=== PATIENT | female | born 1940 | race Caucasian/White ===

== ENCOUNTER 2017-12-22 01:17 | Inpatient (IN) | payer MEDICARE ==
[~2017-12-22] VITALS: Ht 165.1 cm; Wt 66.7 kg
[~2017-12-22 01:17] MED LIST: ATOR10 PO; CHOL100044 PO; CLOP75TA14 PO; DILT240C3 PO; FLUT1BLS IH; GUAI5SYR4 PO; IPRA4AER IH; LEVO500T2 PO; NAPR-1023 PO; PRED20TA3 PO; PREM625 PO; RANI-248 PO; TIOT18CA3 IH
[2017-12-22] MEDS ORDERED: IPRATROPIUM/ALBUTEROL SULFATE 3 ML SOLUTION IH ONE ×3 (01:53→11:00)
[2017-12-22 02:10] LABS: BASOPHILS % (AUTO) 0.5 % (0.0-5.0); EOSINOPHILS % (AUTO) 0.2 % (0.0-8.0); HEMATOCRIT 34.8 % (36-48); LYMPHOCYTES % (AUTO) 12.4 % (21.0-51.0); MEAN CORPUSCULAR HEMOGLOBIN 30.3 pg (27.0-33.0); MEAN CORPUSCULAR HGB CONC 34.2 g/dL (32.0-36.0); MEAN CORPUSCULAR VOLUME 88.5 fL (79-99); MONOCYTES % (AUTO) 8.2 % (3.0-13.0); NEUTROPHILS % (AUTO) 78.7 % (40.0-77.0); PLATELET COUNT (AUTO) 221 K/uL (130-400); RED BLOOD CELL COUNT(AUTO) 3.93 MIL/uL (4.00-5.50); WHITE BLOOD COUNT (AUTO) 10.7 K/uL (4.8-10.8)
[2017-12-22 02:25] LABS: CREATININE 1.1 mg/dL (0.5-1.5); POTASSIUM 3.8 mmol/L (3.5-5.1)
[2017-12-22 02:27] LABS: ALBUMIN 3.2 g/dL (3.5-5.0); BILIRUBIN,TOTAL 0.4 mg/dL (0.2-1.0); TOTAL PROTEIN, SERUM 6.4 g/dL (6.0-8.3)
[2017-12-22] MEDS ORDERED: METHYLPREDNISOLONE SOD SUCC 40MG/ML 1ML ONE ×2 (03:03→14:47)
[2017-12-22] MEDS ORDERED: BENZONATATE 100 MG CAPSULE PO ONE ×2 (03:03→13:24)
[2017-12-22] MEDS ORDERED: SODIUM CHLORIDE 0.9% 1000ML 1,000 ML IV ONE (03:03)
[2017-12-22] MEDS ORDERED: GUAIFENESIN-CODEINE 5 ML SYRUP ONE ×3 (04:23→13:25)
[2017-12-22] MEDS: BUDESONIDE 0.5 MG/2 ML INH IH SCH ×2 (06:00→20:12)
[2017-12-22] MEDS ORDERED: ACETAMINOPHEN 325 MG TAB PO PRN (06:00)
[2017-12-22] MEDS: IPRATROPIUM/ALBUTEROL SULFATE 3 ML SOLUTION IH SCH ×3 (06:00→19:49)
[2017-12-22] MEDS ORDERED: LEVOFLOXACIN 500 MG/D5W 100 ML 100 ML ONE (06:14)
[2017-12-22] MEDS: LEVOFLOXACIN 500 MG/D5W 100 ML 100 ML IV SCH (06:19)
[2017-12-22] MEDS ORDERED: FAMOTIDINE/PF 20 MG/2 ML VIAL IV SCH (09:00)
[2017-12-22 12:23] LABS: CREATINE KINASE MB 2.2 ng/mL (0.5-3.6); TROPONIN I 0.36 ng/mL (0.00-0.06)
[2017-12-22] MEDS: BENZONATATE 100 MG CAPSULE PO SCH ×2 (13:28→20:15)
[2017-12-22] MEDS ORDERED: ENOXAPARIN SODIUM 60 MG/0.6 ML SQ ONE (14:46)
[2017-12-22] MEDS ORDERED: FAMOTIDINE 20MG TAB 20 MG TAB ONE (14:47)
[2017-12-22 15:43] VITALS: BP 137/70
[2017-12-22] MEDS: ENOXAPARIN SODIUM 60 MG/0.6 ML SQ SCH (17:00)
[2017-12-22] MEDS ORDERED: FLUT1DIS3 IH (19:07)
[2017-12-22 19:45] VITALS: BP 125/68
[2017-12-22] MEDS: METHYLPREDNISOLONE SOD SUCC 40MG/ML 1ML IVP SCH (20:15)
[2017-12-22 23:35] VITALS: BP 154/86
[2017-12-22] MEDS ORDERED: ALPRAZOLAM 0.25 MG TABLET PO PRN (23:45)
[2017-12-22] MEDS ORDERED: FAMOTIDINE 20MG TAB 20 MG TAB PO PRN (23:45)
[2017-12-23] VITALS (7 sets, daily range): BP systolic 112–126; BP diastolic 55–72
[2017-12-23] MEDS: IPRATROPIUM/ALBUTEROL SULFATE 3 ML SOLUTION IH SCH ×2 (00:33→07:11)
[2017-12-23] MEDS: METHYLPREDNISOLONE SOD SUCC 40MG/ML 1ML IVP SCH ×2 (05:22→19:49)
[2017-12-23] MEDS: LEVOFLOXACIN 500 MG/D5W 100 ML 100 ML IV SCH (05:23)
[2017-12-23 05:47] LABS: HEMATOCRIT 31.9 % (36-48); MEAN CORPUSCULAR HEMOGLOBIN 30.5 pg (27.0-33.0); MEAN CORPUSCULAR VOLUME 89.5 fL (79-99); PLATELET COUNT (AUTO) 232 K/uL (130-400); RED BLOOD CELL COUNT(AUTO) 3.57 MIL/uL (4.00-5.50); RED CELL DISTRIBUTION WIDTH 14.9 % (11.0-15.5); WHITE BLOOD COUNT (AUTO) 14.9 K/uL (4.8-10.8)
[2017-12-23] MEDS: BUDESONIDE 0.5 MG/2 ML INH IH SCH ×2 (06:00→22:58)
[2017-12-23 06:05] LABS: ALBUMIN 2.9 g/dL (3.5-5.0); BILIRUBIN,TOTAL 0.1 mg/dL (0.2-1.0); POTASSIUM 3.8 mmol/L (3.5-5.1); TOTAL PROTEIN, SERUM 6.2 g/dL (6.0-8.3)
[2017-12-23 06:24] LABS: B-TYPE NATRIURETIC PEPTIDE 298 pg/mL (0-100)
[2017-12-23] MEDS ORDERED: IPRATROPIUM/ALBUTEROL SULFATE 3 ML SOLUTION IH PRN (06:30)
[2017-12-23] MEDS ORDERED: DILTIAZEM HCL 120 MG CAP.SR.24H PO SCH (09:00)
[2017-12-23] MEDS ORDERED: **HM** VIT D3 1000 UNITS PO SCH (09:00)
[2017-12-23] MEDS ORDERED: FAMOTIDINE 20MG TAB 20 MG TAB PO SCH (09:00)
[2017-12-23] MEDS ORDERED: CLOPIDOGREL BISULFATE 75 MG TAB PO SCH (09:00)
[2017-12-23 09:23] LABS: ABG BASE EXCESS 0.1 mmol/L (-2.0-3.0); ABG OXYGEN SATURATION 91.9 % (95.0-99.0); ABG PCO2 42 mmHg (32-45)
[2017-12-23] MEDS: BENZONATATE 100 MG CAPSULE PO SCH ×3 (10:06→19:58)
[2017-12-23] MEDS ORDERED: IPRATROPIUM 0.5 MG/2.5 ML INH IH SCH (12:00)
[2017-12-23] MEDS ORDERED: ALBUTEROL SULFATE 0.083% 2.5 MG/3 ML INH IH SCH (12:00)
[2017-12-23] MEDS: GUAIFENESIN-CODEINE 5 ML SYRUP PO PRN ×2 (12:33→21:13)
[2017-12-23] MEDS: IPRATROPIUM 0.5 MG/2.5 ML INH IH SCH ×2 (14:14→22:58)
[2017-12-23] MEDS: ENOXAPARIN SODIUM 60 MG/0.6 ML SQ SCH (17:00)
[2017-12-23] MEDS ORDERED: BUDESONIDE 0.5 MG/2 ML INH IH SCH (18:00)
[2017-12-23] MEDS ORDERED: ATORVASTATIN CALCIUM 10 MG TABLET PO SCH (21:00)
[2017-12-24 03:15] VITALS: BP 115/65
[2017-12-24] MEDS: LEVOFLOXACIN 500 MG/D5W 100 ML 100 ML IV SCH (04:17)
[2017-12-24] MEDS: GUAIFENESIN-CODEINE 5 ML SYRUP PO PRN (04:23)
[2017-12-24] MEDS: METHYLPREDNISOLONE SOD SUCC 40MG/ML 1ML IVP SCH (05:14)
[2017-12-24] MEDS: BUDESONIDE 0.5 MG/2 ML INH IH SCH (06:37)
[2017-12-24] MEDS: IPRATROPIUM 0.5 MG/2.5 ML INH IH SCH (06:37)
[2017-12-24 08:00] VITALS: BP 103/57
[2018-02-21] MEDS ORDERED: CALC-866 PO (10:52)
[2018-02-21] MEDS ORDERED: NAPR220C15 PO (10:52)
[2018-02-21] MEDS ORDERED: BUDE10.2 IH (10:52)
[2018-02-21] MEDS ORDERED: ALBU8.5H8 IH (10:52)
[2018-02-21] MEDS ORDERED: ALPR1TAB2 PO (10:52)
== END 2017-12-24 09:30 | disposition home or self-care (01) | DRG 189 ==
LOC: EDH 01:17 → EDHIP 05:20 → 3AH 15:25
PROVIDERS: ADMIT Internal Medicine Nephrology; ATTEND Internal Medicine Nephrology
DX: J96.21 Acute and chronic respiratory failure with hypoxia (principal); J44.0 Chronic obstructive pulmonary disease with (acute) lower respiratory infection; Z99.81 Dependence on supplemental oxygen; J44.1 Chronic obstructive pulmonary disease with (acute) exacerbation; E03.9 Hypothyroidism, unspecified; I10 Essential (primary) hypertension; J20.9 Acute bronchitis, unspecified; E78.5 Hyperlipidemia, unspecified; D72.829 Elevated white blood cell count, unspecified; I73.9 Peripheral vascular disease, unspecified; Z90.710 Acquired absence of both cervix and uterus; Z87.891 Personal history of nicotine dependence; Z88.0 Allergy status to penicillin; Z88.8 Allergy status to other drugs, medicaments and biological substances; Z83.3 Family history of diabetes mellitus
CPT/HCPCS: 36415; 36600; 71045; 80053; 82550; 82553; 82803; 83874; 83880; 84484; 85025; 85027; 87804; 93005; 93306; 94640; 94664; J1650; J1956; J2920; J7030

== ENCOUNTER → 2018-01-16 | Outpatient (CLI) | payer OTHER ==
[~2018-01-16] MED LIST changes: +ALBU8.5H8 IH; +ALPR1TAB2 PO; +BUDE10.2 IH; +CALC-866 PO; -FLUT1BLS IH; +FLUT1DIS3 IH; -GUAI5SYR4 PO; -LEVO500T2 PO; +NAPR220C15 PO; -PRED20TA3 PO; -PREM625 PO
== END | disposition home or self-care (01) ==
LOC: RAH 13:02
PROVIDERS: ATTEND Internal Medicine Cardiovascular Disease
DX: Z13.6 Encounter for screening for cardiovascular disorders (principal)
CPT/HCPCS: 75571

== ENCOUNTER 2018-02-25 05:58 | Inpatient (IN) | payer MEDICARE ==
[2018-02-21 09:45] VITALS: BP 155/74
[2018-02-21 10:26] LABS: APPEARANCE,URINE Clear (CLEAR); BILIRUBIN,URINE Negative (NEGATIVE); COLOR,URINE Yellow (YELLOW); GLUCOSE, URINE (UA) Negative (NEGATIVE); KETONES,URINE Negative (NEGATIVE); LEUKOCYTE ESTERASE ,URINE Trace (NEGATIVE); NITRATE,URINE Negative (NEGATIVE); OCCULT BLOOD,URINE Negative (NEGATIVE); PH,URINE 5.5 (5.0-8.0); PROTEIN,URINE Negative (NEGATIVE); UROBILINOGEN,URINE 0.2 mg/dL (0.2-1.0)
[2018-02-21 10:32] LABS: CREATININE 1.2 mg/dL (0.5-1.5); POTASSIUM 3.9 mmol/L (3.5-5.1)
[2018-02-21 10:33] LABS: BASOPHILS % (AUTO) 0.6 % (0.0-5.0); EOSINOPHILS % (AUTO) 3.4 % (0.0-8.0); LYMPHOCYTES % (AUTO) 29.4 % (21.0-51.0); MEAN CORPUSCULAR HEMOGLOBIN 30.4 pg (27.0-33.0); MEAN CORPUSCULAR VOLUME 89.2 fL (79-99); MONOCYTES % (AUTO) 7.6 % (3.0-13.0); PLATELET COUNT (AUTO) 298 K/uL (130-400); RED BLOOD CELL COUNT(AUTO) 4.15 MIL/uL (4.00-5.50); RED CELL DISTRIBUTION WIDTH 17.2 % (11.0-15.5); WHITE BLOOD COUNT (AUTO) 7.9 K/uL (4.8-10.8)
[2018-02-21 10:42] LABS: INR 0.87 (0.85-1.15); PARTIAL THROMBOPLASTIN TIME 26.4 SEC (26.3-35.5); PROTHROMBIN TIME 9.2 SEC (9.6-11.6)
[2018-02-21 10:45] LABS: BACTERIA,URINE Few /HPF (None Seen); RBC,URINE 0-1 /HPF (0-1)
[~2018-02-25] VITALS: Ht 165.1 cm; Wt 71.9 kg
[2018-02-25] VITALS (29 sets, daily range): BP systolic 93–154; BP diastolic 36–75
[~2018-02-25 05:58] MED LIST changes: +ACETAMINOPHEN 325 MG TAB PO PRN; -CHOL100044 PO; -FLUT1DIS3 IH; -IPRA4AER IH; -NAPR-1023 PO; +SODIUM CHLORIDE 0.9% 500ML 500 ML IV SCH
[2018-02-25] MEDS ORDERED: SODIUM BICARB 50MEQ 50ML VIAL ONE ×3 (07:08→20:26)
[2018-02-25] MEDS ORDERED: NITROGLYCERIN 5 MG/ML 10 ML VIAL IV ONE (07:08)
[2018-02-25] MEDS ORDERED: HEPARIN SODIUM 1000UNIT/ML 10ML VIAL ONE ×3 (07:08→10:17)
[2018-02-25] MEDS ORDERED: LIDOCAINE HCL 2% 20ML ONE (07:09)
[2018-02-25] MEDS ORDERED: IOPAMIDOL-370 100 ML VIAL IV ONE (07:09)
[2018-02-25] MEDS ORDERED: ISOVUE-370 50ML VIAL IV ONE (07:09)
[2018-02-25] MEDS ORDERED: SODIUM CHLORIDE 0.9% 1000ML 1,000 ML IV ONE (07:19)
[2018-02-25] MEDS ORDERED: SODIUM CHLORIDE 0.9% 1000ML 1,000 ML IV SCH ×2 (08:18→12:30)
[2018-02-25] MEDS ORDERED: ACETAMINOPHEN-CODEINE 300/30MG TAB PO PRN (08:30)
[2018-02-25] MEDS: CLINDAMYCIN 600 MG/D5% WATER 50 ML IV SCH ×3 (09:15→19:53)
[2018-02-25] MEDS ORDERED: NITROGLYCERIN 50 MG/D5% WATER 1 BOT ONE (09:34)
[2018-02-25 09:36] LABS: HEMOGLOBIN A1C 5.6 % (4.0-6.0)
[2018-02-25] MEDS ORDERED: AMIODARONE HCL 50 MG/ML 3 ML VIAL ONE (09:44)
[2018-02-25] MEDS ORDERED: FENTANYL CITRATE PF 50 MCG/1 ML 2ML VIAL ONE (09:47)
[2018-02-25] MEDS ORDERED: MIDAZOLAM HCL 1 MG/ML 2ML VIAL ONE (09:47)
[2018-02-25 09:48] LABS: CHOLESTEROL 242 mg/dL (<200); HDL CHOLESTEROL 158 mg/dL (35-85); LDL DIRECT 84 mg/dL (0-99); TRIGLYCERIDES 88 mg/dL (30-200)
[2018-02-25] MEDS ORDERED: PROPOFOL 10 MG/ML 20ML VIAL IV ONE (10:03)
[2018-02-25] MEDS ORDERED: GLYCOPYRROLATE 0.2 MG/ML 5 ML VIAL ONE (10:06)
[2018-02-25] MEDS ORDERED: ESMOLOL HCL 10 MG/ML 10 ML VIAL ONE (10:06)
[2018-02-25] MEDS ORDERED: LIDOCAINE PF 2% 5ML ABBOJECT ONE (10:06)
[2018-02-25] MEDS ORDERED: PROTAMINE SULFATE 10 MG/ML 25ML VIAL IV ONE (10:06)
[2018-02-25] MEDS ORDERED: ROCURONIUM BROMIDE 10MG/1ML 5ML VL ONE (10:06)
[2018-02-25] MEDS ORDERED: NOREPINEPHRINE BITARTRATE 1 MG/1 ML ML IV ONE (10:07)
[2018-02-25] MEDS ORDERED: MILRINONE-D5W 20 MG/100 ML 0 ML IV ONE (10:07)
[2018-02-25] MEDS ORDERED: EPINEPHRINE 1 MG/ML AMPULE ONE (10:07)
[2018-02-25] MEDS ORDERED: AMINOCAPROIC ACID 250 MG/ML 20 ML VIAL IV ONE (10:07)
[2018-02-25] MEDS ORDERED: THROMBIN-JMI 5000 UNIT/VIAL TP ONE (10:17)
[2018-02-25] MEDS ORDERED: PAPAVERINE HCL 30 MG/ML 2ML VIAL ONE (10:30)
[2018-02-25] MEDS ORDERED: OCTYL 2-CYANOACRYLATE 1 EACH TP ONE (10:30)
[2018-02-25] MEDS ORDERED: BACITRACIN 50,000 UNIT VIAL ONE (10:30)
[2018-02-25 10:34] LABS: ABG BASE EXCESS -1.7 mmol/L (-2.0-3.0); ABG HCO3 23.5 mmol/L (21.0-28.0); ABG OXYGEN SATURATION 99.3 % (95.0-99.0); ABG PCO2 41 mmHg (32-45)
[2018-02-25] MEDS ORDERED: FENTANYL CITRATE PF 50 MCG/1 ML 5ML AMP IV ONE ×2 (11:15→11:16)
[2018-02-25 11:33] LABS: ABG BASE EXCESS -4.8 mmol/L (-2.0-3.0); ABG HCO3 22.1 mmol/L (21.0-28.0); ABG OXYGEN SATURATION 99.4 % (95.0-99.0); ABG PCO2 49 mmHg (32-45)
[2018-02-25] MEDS: AMBU PUMP 1 EACH EACH MISC SCH ×2 (11:45→12:53)
[2018-02-25] MEDS ORDERED: ROPIVACAINE 0.2% 2MG/ML 100ML VIAL IJ ONE (12:00)
[2018-02-25] MEDS ORDERED: SODIUM CHLORIDE 0.9% 500ML 500 ML IV SCH (12:19)
[2018-02-25] MEDS ORDERED: MORPHINE SULFATE 4 MG/1ML SYG IV PRN (12:30)
[2018-02-25] MEDS ORDERED: ACETAMINOPHEN 325 MG TAB PO PRN (12:30)
[2018-02-25] MEDS ORDERED: HYDROCODONE/ACETAMINOPHEN 5/325 MG TAB PO PRN (12:30)
[2018-02-25] MEDS ORDERED: POTASSIUM PHOS 15 mMOL+NS250ML 250 ML IV PRN (12:30)
[2018-02-25] MEDS ORDERED: NITROGLYCERIN 50 MG/D5% WATER 250 BOT IV SCH (12:30)
[2018-02-25] MEDS ORDERED: EPINEPHRINE 2 MG in SODIUM CHLORIDE 0.9% 250 ML IV PRN (12:30)
[2018-02-25] MEDS ORDERED: NICARDIPINE HCL 100 MG in SODIUM CHLORIDE 0.9% 100 ML IV PRN (12:30)
[2018-02-25] MEDS ORDERED: DEXTROSE 50%-WATER 50 ML DISP.SYRIN IV PRN (12:30)
[2018-02-25] MEDS ORDERED: ONDANSETRON HCL 4 MG/2 ML VIAL IV PRN (12:30)
[2018-02-25] MEDS ORDERED: CALCIUM GLUCONATE 1 GM in SODIUM CHLORIDE 0.9% 50 ML IV PRN (12:30)
[2018-02-25] MEDS ORDERED: SODIUM BICARB 8.4% 50ML SYRINGE IV PRN (12:30)
[2018-02-25] MEDS ORDERED: ALBUMIN (HUMAN) 5% 250 ML IV PRN (12:30)
[2018-02-25] MEDS ORDERED: SODIUM CHLORIDE 0.9% 10 ML VIAL IVP PRN (12:30)
[2018-02-25] MEDS ORDERED: MAGNESIUM 2GM PREMIX 50ML 50 ML IV PRN (12:30)
[2018-02-25] MEDS ORDERED: GLUCAGON 1MG KIT 1 MG ML IM PRN (12:30)
[2018-02-25] MEDS ORDERED: INSULIN REGULAR, HUMAN 3ML 100 UNIT in SODIUM CHLORIDE 0.9% 99 ML IV SCH ×2 (12:30)
[2018-02-25] MEDS ORDERED: PROPOFOL 1000 MG/100 ML 100 ML IV PRN (12:30)
[2018-02-25] MEDS ORDERED: SODIUM CHLORIDE 0.9% 250 ML IV PRN (12:30)
[2018-02-25] MEDS: AMINOCAPROIC ACID 15,000 MG in SODIUM CHLORIDE 0.9% 250 ML IV SCH ×2 (12:30→19:55)
[2018-02-25] MEDS ORDERED: ACETAMINOPHEN 650 MG SUPPOSITORY RC PRN (12:30)
[2018-02-25] MEDS ORDERED: MORPHINE SULFATE 2 MG/ML 1ML SYG IV PRN (12:30)
[2018-02-25 12:42] LABS: ABG BASE EXCESS -1.7 mmol/L (-2.0-3.0); ABG HCO3 26.4 mmol/L (21.0-28.0); ABG PCO2 65 mmHg (32-45)
[2018-02-25] MEDS ORDERED: EPHEDRINE SULFATE 50 MG/ML AMPULE ONE (13:01)
[2018-02-25 13:39] LABS: ABG BASE EXCESS -5.5 mmol/L (-2.0-3.0); ABG HCO3 20.8 mmol/L (21.0-28.0); ABG OXYGEN SATURATION 97.5 % (95.0-99.0); ABG PCO2 44 mmHg (32-45)
[2018-02-25] MEDS: POTASSIUM CHLORIDE 20MEQ/100ML 100 ML IV PRN ×2 (13:41→17:31)
[2018-02-25 13:56] LABS: MEAN CORPUSCULAR HEMOGLOBIN 30.9 pg (27.0-33.0); RED BLOOD CELL COUNT(AUTO) 3.14 MIL/uL (4.00-5.50)
[2018-02-25 14:07] LABS: CREATININE 1.1 mg/dL (0.5-1.5); MAGNESIUM 1.4 mg/dL (1.80-2.40); PHOSPHORUS 5.1 mg/dL (2.5-4.9); POTASSIUM 3.8 mmol/L (3.5-5.1)
[2018-02-25 15:13] LABS: HEMATOCRIT 28.1 % (36-48); MEAN CORPUSCULAR HGB CONC 34.5 g/dL (32.0-36.0); MEAN CORPUSCULAR VOLUME 89.6 fL (79-99); NUCLEATED RED BLOOD CELLS 0.1 % (0.0-0.19); PLATELET COUNT (AUTO) 292 K/uL (130-400); RED CELL DISTRIBUTION WIDTH 17.2 % (11.0-15.5); WHITE BLOOD COUNT (AUTO) 28.8 K/uL (4.8-10.8)
[2018-02-25] MEDS: NOREPINEPHRINE 4MG/NS 250ML 250 ML IV PRN (15:30)
[2018-02-25 17:06] LABS: ABG HCO3 24.7 mmol/L (21.0-28.0); ABG OXYGEN SATURATION 94.4 % (95.0-99.0); ABG PCO2 45 mmHg (32-45)
[2018-02-25 17:20] LABS: CREATININE 1.3 mg/dL (0.5-1.5); MAGNESIUM 2.6 mg/dL (1.80-2.40); POTASSIUM 3.7 mmol/L (3.5-5.1)
[2018-02-25 19:15] LABS: ABG BASE EXCESS -0.8 mmol/L (-2.0-3.0); ABG HCO3 24.6 mmol/L (21.0-28.0); ABG OXYGEN SATURATION 93.7 % (95.0-99.0); ABG PCO2 44 mmHg (32-45)
[2018-02-25] MEDS: HYDROCODONE/ACETAMINOPHEN 5/325 MG TAB PO PRN (19:52)
[2018-02-25 20:25] LABS: ABG HCO3 22.4 mmol/L (21.0-28.0); ABG OXYGEN SATURATION 91.5 % (95.0-99.0); ABG PCO2 47 mmHg (32-45)
[2018-02-25 23:27] LABS: ABG BASE EXCESS 0.4 mmol/L (-2.0-3.0); ABG HCO3 26.1 mmol/L (21.0-28.0); ABG PCO2 47 mmHg (32-45)
[2018-02-26] VITALS (23 sets, daily range): BP systolic 88–130; BP diastolic 39–69
[2018-02-26 04:04] LABS: HEMATOCRIT 25.6 % (36-48); MEAN CORPUSCULAR HEMOGLOBIN 29.8 pg (27.0-33.0); MEAN CORPUSCULAR HGB CONC 33.3 g/dL (32.0-36.0); MEAN CORPUSCULAR VOLUME 89.3 fL (79-99); PLATELET COUNT (AUTO) 288 K/uL (130-400); RED BLOOD CELL COUNT(AUTO) 2.86 MIL/uL (4.00-5.50); RED CELL DISTRIBUTION WIDTH 17.6 % (11.0-15.5); WHITE BLOOD COUNT (AUTO) 12.5 K/uL (4.8-10.8)
[2018-02-26 04:18] LABS: CREATININE 1.3 mg/dL (0.5-1.5); MAGNESIUM 2.2 mg/dL (1.80-2.40); PHOSPHORUS 3.8 mg/dL (2.5-4.9)
[2018-02-26] MEDS: HYDROCODONE/ACETAMINOPHEN 5/325 MG TAB PO PRN ×4 (06:05→21:25)
[2018-02-26] MEDS: CLINDAMYCIN 600 MG/D5% WATER 50 ML IV SCH ×2 (06:07→12:19)
[2018-02-26] MEDS: NOREPINEPHRINE 4MG/NS 250ML 250 ML IV PRN (07:50)
[2018-02-26] MEDS: PANTOPRAZOLE SODIUM 40 MG TABLET.DR PO SCH (08:31)
[2018-02-26] MEDS ORDERED: PANTOPRAZOLE 40 MG/VIAL IV SCH (09:00)
[2018-02-26] MEDS: IPRATROPIUM/ALBUTEROL SULFATE 3 ML SOLUTION IH SCH ×3 (11:13→23:16)
[2018-02-26] MEDS: ONDANSETRON HCL MDV 20ML 2 MG/ML VIAL IV PRN (11:29)
[2018-02-26] MEDS ORDERED: ALBUTEROL SULFATE 0.083% 2.5 MG/3 ML INH IH SCH (12:00)
[2018-02-26] MEDS ORDERED: IPRATROPIUM 0.5 MG/2.5 ML INH IH SCH (12:00)
[2018-02-26] MEDS: ASPIRIN 81MG TAB.CHEW PO SCH (15:10)
[2018-02-26] MEDS: BUDESONIDE 0.5 MG/2 ML INH IH SCH (18:13)
[2018-02-26] MEDS: ATORVASTATIN CALCIUM 10 MG TABLET PO SCH (21:24)
[2018-02-27] VITALS (16 sets, daily range): BP systolic 87–124; BP diastolic 41–62
[2018-02-27 04:18] LABS: CREATININE 1.2 mg/dL (0.5-1.5)
[2018-02-27] MEDS: POTASSIUM CHLORIDE 20MEQ/100ML 100 ML IV PRN (04:24)
[2018-02-27 04:46] LABS: HEMATOCRIT 22.5 % (36-48); MEAN CORPUSCULAR HEMOGLOBIN 29.4 pg (27.0-33.0); MEAN CORPUSCULAR HGB CONC 32.2 g/dL (32.0-36.0); MEAN CORPUSCULAR VOLUME 91.5 fL (79-99); NUCLEATED RED BLOOD CELLS 0.1 % (0.0-0.19); PLATELET COUNT (AUTO) 164 K/uL (130-400); RED BLOOD CELL COUNT(AUTO) 2.46 MIL/uL (4.00-5.50); RED CELL DISTRIBUTION WIDTH 17.5 % (11.0-15.5); WHITE BLOOD COUNT (AUTO) 12.5 K/uL (4.8-10.8)
[2018-02-27] MEDS: HYDROCODONE/ACETAMINOPHEN 5/325 MG TAB PO PRN (05:27)
[2018-02-27] MEDS: ONDANSETRON HCL MDV 20ML 2 MG/ML VIAL IV PRN (05:36)
[2018-02-27] MEDS ORDERED: FUROSEMIDE 10 MG/ML 2ML VIAL IV SCH (06:12)
[2018-02-27] MEDS ORDERED: HYDROCORTISONE SOD SUCCINATE 100 MG/2 ML VIAL IV SCH (06:15)
[2018-02-27] MEDS: BUDESONIDE 0.5 MG/2 ML INH IH SCH ×2 (06:38→21:21)
[2018-02-27] MEDS: IPRATROPIUM/ALBUTEROL SULFATE 3 ML SOLUTION IH SCH ×3 (06:38→21:21)
[2018-02-27] MEDS ORDERED: RANITIDINE HCL 15 MG/1 ML PO PRN (07:30)
[2018-02-27] MEDS ORDERED: NAPROXEN 250 MG TAB PO PRN (07:30)
[2018-02-27] MEDS ORDERED: ALPRAZOLAM 0.5 MG TABLET PO PRN (07:30)
[2018-02-27] MEDS: CLOPIDOGREL BISULFATE 75 MG TAB PO SCH (08:03)
[2018-02-27] MEDS: PANTOPRAZOLE SODIUM 40 MG TABLET.DR PO SCH (08:03)
[2018-02-27] MEDS: ASPIRIN 81MG TAB.CHEW PO SCH (08:03)
[2018-02-27] MEDS ORDERED: TRAMADOL HCL 50 MG TABLET PO SCH (08:45)
[2018-02-27] MEDS ORDERED: DILTIAZEM HCL 180 MG CAP.SR.24H PO SCH (09:00)
[2018-02-27] MEDS: FUROSEMIDE 20 MG TABLET PO SCH ×2 (09:35→18:34)
[2018-02-27] MEDS: DILTIAZEM HCL 120 MG CAP.SR.24H PO SCH (09:35)
[2018-02-27] MEDS: METOPROLOL TARTRATE 25 MG TAB PO SCH ×2 (09:35→20:24)
[2018-02-27] MEDS: INSULIN HUMULIN R 100 UNIT/ML 3ML SQ SCH ×3 (11:19→21:00)
[2018-02-27] MEDS ORDERED: IPRATROPIUM 0.5 MG/2.5 ML INH IH SCH (12:00)
[2018-02-27] MEDS: ATORVASTATIN CALCIUM 10 MG TABLET PO SCH (20:22)
[2018-02-28] MEDS: IPRATROPIUM/ALBUTEROL SULFATE 3 ML SOLUTION IH SCH ×5 (00:43→23:52)
[2018-02-28 04:02] VITALS: BP 101/51
[2018-02-28 04:33] LABS: BASOPHILS % (AUTO) 0.4 % (0.0-5.0); EOSINOPHILS % (AUTO) 0.4 % (0.0-8.0); HEMATOCRIT 25.4 % (36-48); LYMPHOCYTES % (AUTO) 9.4 % (21.0-51.0); MEAN CORPUSCULAR HEMOGLOBIN 30.5 pg (27.0-33.0); MEAN CORPUSCULAR HGB CONC 33.8 g/dL (32.0-36.0); MEAN CORPUSCULAR VOLUME 90.1 fL (79-99); NEUTROPHILS % (AUTO) 79.8 % (40.0-77.0); NUCLEATED RED BLOOD CELLS 0.1 % (0.0-0.19); PLATELET COUNT (AUTO) 183 K/uL (130-400); RED BLOOD CELL COUNT(AUTO) 2.82 MIL/uL (4.00-5.50); RED CELL DISTRIBUTION WIDTH 16.2 % (11.0-15.5); WHITE BLOOD COUNT (AUTO) 13.7 K/uL (4.8-10.8)
[2018-02-28 04:55] LABS: CREATININE 1.5 mg/dL (0.5-1.5); POTASSIUM 4.6 mmol/L (3.5-5.1)
[2018-02-28] MEDS: INSULIN HUMULIN R 100 UNIT/ML 3ML SQ SCH ×4 (06:02→20:47)
[2018-02-28] MEDS: BUDESONIDE 0.5 MG/2 ML INH IH SCH ×2 (06:25→18:14)
[2018-02-28 08:00] VITALS: BP 111/61
[2018-02-28] MEDS: ASPIRIN 81MG TAB.CHEW PO SCH (09:25)
[2018-02-28] MEDS: METOPROLOL TARTRATE 25 MG TAB PO SCH ×2 (09:25→20:47)
[2018-02-28] MEDS: CLOPIDOGREL BISULFATE 75 MG TAB PO SCH (09:25)
[2018-02-28] MEDS: FUROSEMIDE 20 MG TABLET PO SCH ×2 (09:26→17:04)
[2018-02-28] MEDS: PANTOPRAZOLE SODIUM 40 MG TABLET.DR PO SCH (09:26)
[2018-02-28] MEDS: DILTIAZEM HCL 120 MG CAP.SR.24H PO SCH (09:28)
[2018-02-28] MEDS: TRAMADOL HCL 50 MG TABLET PO PRN ×2 (09:29→22:51)
[2018-02-28 11:26] VITALS: BP 85/49
[2018-02-28 16:00] VITALS: BP 113/60
[2018-02-28 19:41] VITALS: BP 100/58
[2018-02-28] MEDS ORDERED: AMIODARONE HCL 900 MG in DEXTROSE 5%-WATER 500 ML IV SCH (19:45)
[2018-02-28] MEDS ORDERED: AMIODARONE HCL 150 MG in DEXTROSE 5%-WATER 100 ML IV SCH (19:45)
[2018-02-28] MEDS: ATORVASTATIN CALCIUM 10 MG TABLET PO SCH (20:47)
[2018-02-28 23:42] VITALS: BP 100/55
[2018-03-01 03:45] VITALS: BP 125/60
[2018-03-01 05:04] LABS: CREATININE 1.3 mg/dL (0.5-1.5); POTASSIUM 3.9 mmol/L (3.5-5.1)
[2018-03-01] MEDS: IPRATROPIUM/ALBUTEROL SULFATE 3 ML SOLUTION IH SCH ×3 (06:14→18:16)
[2018-03-01] MEDS: BUDESONIDE 0.5 MG/2 ML INH IH SCH ×2 (06:24→19:03)
[2018-03-01] MEDS: INSULIN HUMULIN R 100 UNIT/ML 3ML SQ SCH ×4 (06:45→20:59)
[2018-03-01 07:44] VITALS: BP 117/57
[2018-03-01] MEDS: PANTOPRAZOLE SODIUM 40 MG TABLET.DR PO SCH (09:07)
[2018-03-01] MEDS: METOPROLOL TARTRATE 25 MG TAB PO SCH ×2 (09:07→19:58)
[2018-03-01] MEDS: FUROSEMIDE 20 MG TABLET PO SCH ×2 (09:07→17:55)
[2018-03-01] MEDS: CLOPIDOGREL BISULFATE 75 MG TAB PO SCH (09:07)
[2018-03-01] MEDS: ASPIRIN 81MG TAB.CHEW PO SCH (09:07)
[2018-03-01] MEDS ORDERED: MAGNESIUM HYDROXIDE 30 ML/UDCUP PO PRN (10:30)
[2018-03-01] MEDS: ACETYLCYSTEINE 20% 200MG/ML 4ML VIAL IH SCH ×2 (11:06→18:16)
[2018-03-01 11:43] VITALS: BP 119/59
[2018-03-01] MEDS: POLYETHYLENE GLYCOL 3350 17 GM POWD.PACK PO SCH (12:26)
[2018-03-01 16:54] VITALS: BP 128/62
[2018-03-01] MEDS: LEVOFLOXACIN 500 MG TABLET PO SCH (17:54)
[2018-03-01 19:46] VITALS: BP 137/64
[2018-03-01] MEDS: AMIODARONE HCL 200 MG TABLET PO SCH (19:58)
[2018-03-01] MEDS: ATORVASTATIN CALCIUM 10 MG TABLET PO SCH (19:58)
[2018-03-01 23:52] VITALS: BP 131/72
[2018-03-02] MEDS: IPRATROPIUM/ALBUTEROL SULFATE 3 ML SOLUTION IH SCH ×5 (00:25→23:48)
[2018-03-02] MEDS: TRAMADOL HCL 50 MG TABLET PO PRN ×2 (00:32→17:48)
[2018-03-02 03:45] VITALS: BP 142/70
[2018-03-02 04:15] LABS: HEMATOCRIT 24.8 % (36-48); MEAN CORPUSCULAR HEMOGLOBIN 30.7 pg (27.0-33.0); MEAN CORPUSCULAR HGB CONC 34.4 g/dL (32.0-36.0); MEAN CORPUSCULAR VOLUME 89.4 fL (79-99); NUCLEATED RED BLOOD CELLS 0.2 % (0.0-0.19); PLATELET COUNT (AUTO) 237 K/uL (130-400); RED BLOOD CELL COUNT(AUTO) 2.78 MIL/uL (4.00-5.50); RED CELL DISTRIBUTION WIDTH 16.5 % (11.0-15.5); WHITE BLOOD COUNT (AUTO) 8.2 K/uL (4.8-10.8)
[2018-03-02 04:28] LABS: CREATININE 1.1 mg/dL (0.5-1.5)
[2018-03-02 04:38] LABS: POTASSIUM 2.8 mmol/L (3.5-5.1)
[2018-03-02] MEDS: POTASSIUM CHLORIDE 20MEQ/100ML 100 ML IV PRN (05:18)
[2018-03-02] MEDS: BUDESONIDE 0.5 MG/2 ML INH IH SCH ×2 (06:07→20:32)
[2018-03-02] MEDS: ACETYLCYSTEINE 20% 200MG/ML 4ML VIAL IH SCH ×3 (06:07→19:38)
[2018-03-02] MEDS: INSULIN HUMULIN R 100 UNIT/ML 3ML SQ SCH ×4 (06:15→20:26)
[2018-03-02 07:34] VITALS: BP 126/66
[2018-03-02] MEDS ORDERED: LIDOCAINE HCL-MPF 1% 2ML VIAL IVP PRN (07:45)
[2018-03-02] MEDS ORDERED: POTASSIUM CHLORIDE 20MEQ/100ML 100 ML IV PRN (07:45)
[2018-03-02] MEDS ORDERED: POTASSIUM CHLORIDE 10% ELIXIR 20 MEQ/15 ML UDCUP PO PRN (07:45)
[2018-03-02] MEDS: METOPROLOL TARTRATE 25 MG TAB PO SCH (08:05)
[2018-03-02] MEDS: CLOPIDOGREL BISULFATE 75 MG TAB PO SCH (08:05)
[2018-03-02] MEDS: POLYETHYLENE GLYCOL 3350 17 GM POWD.PACK PO SCH (08:05)
[2018-03-02] MEDS: PANTOPRAZOLE SODIUM 40 MG TABLET.DR PO SCH (08:05)
[2018-03-02] MEDS: ASPIRIN 81MG TAB.CHEW PO SCH (08:05)
[2018-03-02] MEDS: AMIODARONE HCL 200 MG TABLET PO SCH ×2 (08:05→20:19)
[2018-03-02] MEDS: LEVOFLOXACIN 500 MG TABLET PO SCH (08:05)
[2018-03-02] MEDS: FUROSEMIDE 20 MG TABLET PO SCH ×2 (08:06→17:48)
[2018-03-02] MEDS: POTASSIUM CHLORIDE 20 MEQ ERTAB PO PRN ×3 (08:06→23:05)
[2018-03-02 12:09] VITALS: BP 124/70
[2018-03-02] MEDS: ONDANSETRON HCL MDV 20ML 2 MG/ML VIAL IV PRN (12:24)
[2018-03-02 16:26] VITALS: BP 127/64
[2018-03-02 19:00] VITALS: BP 127/60
[2018-03-02] MEDS: ATORVASTATIN CALCIUM 10 MG TABLET PO SCH (20:19)
[2018-03-02] MEDS: METOPROLOL TARTRATE 50 MG TAB PO SCH (20:23)
[2018-03-02] MEDS ORDERED: AMIODARONE HCL 150 MG in DEXTROSE 5%-WATER 100 ML IV SCH (22:00)
[2018-03-02] MEDS ORDERED: AMIODARONE HCL 50 MG/ML 3 ML VIAL ONE (22:02)
[2018-03-02] MEDS ORDERED: DEXTROSE 5%-WATER 500 ML IV ONE (22:03)
[2018-03-02 23:00] VITALS: BP 109/68
[2018-03-03 03:00] VITALS: BP 114/56
[2018-03-03 04:53] LABS: CREATININE 1.1 mg/dL (0.5-1.5); POTASSIUM 3.5 mmol/L (3.5-5.1)
[2018-03-03] MEDS: POTASSIUM CHLORIDE 20 MEQ ERTAB PO PRN ×2 (05:11→06:26)
[2018-03-03] MEDS: TRAMADOL HCL 50 MG TABLET PO PRN ×3 (05:21→16:14)
[2018-03-03] MEDS: IPRATROPIUM/ALBUTEROL SULFATE 3 ML SOLUTION IH SCH ×2 (05:53→11:05)
[2018-03-03] MEDS: BUDESONIDE 0.5 MG/2 ML INH IH SCH (05:53)
[2018-03-03] MEDS: INSULIN HUMULIN R 100 UNIT/ML 3ML SQ SCH ×3 (06:39→15:55)
[2018-03-03 07:00] VITALS: BP 113/57
[2018-03-03] MEDS: AMIODARONE HCL 200 MG TABLET PO SCH (09:03)
[2018-03-03] MEDS: LEVOFLOXACIN 500 MG TABLET PO SCH (09:03)
[2018-03-03] MEDS: METOPROLOL TARTRATE 50 MG TAB PO SCH (09:03)
[2018-03-03] MEDS: FUROSEMIDE 20 MG TABLET PO SCH ×2 (09:03→16:24)
[2018-03-03] MEDS: PANTOPRAZOLE SODIUM 40 MG TABLET.DR PO SCH (09:04)
[2018-03-03] MEDS: POLYETHYLENE GLYCOL 3350 17 GM POWD.PACK PO SCH (09:04)
[2018-03-03] MEDS: CLOPIDOGREL BISULFATE 75 MG TAB PO SCH (09:04)
[2018-03-03] MEDS: ASPIRIN 81MG TAB.CHEW PO SCH (09:04)
[2018-03-03 11:00] VITALS: BP 123/67
[2018-03-03 16:00] VITALS: BP 95/59
[2018-03-03] MEDS ORDERED: APIXABAN 5 MG TABLET PO SCH (21:00)
== END 2018-03-03 17:05 | DRG 233 ==
LOC: SUH 05:58 → DAH 05:58 → DAHIP 05:59 → SUH 05:59 → 2CV 12:43 → 2BH 02-26 03:12 → 2DH 02-27 14:45
PROVIDERS: ADMIT Internal Medicine; ATTEND Internal Medicine
PROC: B4101ZZ Fluoroscopy of Abdominal Aorta using Low Osmolar Contrast (ICD-10-PCS; 2018-02-25)
PROC: B2111ZZ Fluoroscopy of Multiple Coronary Arteries using Low Osmolar Contrast (ICD-10-PCS; 2018-02-25)
PROC: 4A023N7 Measurement of Cardiac Sampling and Pressure, Left Heart, Percutaneous Approach (ICD-10-PCS; 2018-02-25)
PROC: 021209W Bypass Coronary Artery, Three Arteries from Aorta with Autologous Venous Tissue, Open Approach (ICD-10-PCS; 2018-02-25)
PROC: 06BQ4ZZ Excision of Left Saphenous Vein, Percutaneous Endoscopic Approach (ICD-10-PCS; 2018-02-25)
PROC: 30233N1 Transfusion of Nonautologous Red Blood Cells into Peripheral Vein, Percutaneous Approach (ICD-10-PCS; 2018-02-25)
PROC: 0BH17EZ Insertion of Endotracheal Airway into Trachea, Via Natural or Artificial Opening (ICD-10-PCS; 2018-02-25)
PROC: 02100Z9 Bypass Coronary Artery, One Artery from Left Internal Mammary, Open Approach (ICD-10-PCS; principal; 2018-02-25 09:52)
PROC: B2151ZZ Fluoroscopy of Left Heart using Low Osmolar Contrast (ICD-10-PCS; 2018-02-25 09:52)
PROC: 5A1935Z Respiratory Ventilation, Less than 24 Consecutive Hours (ICD-10-PCS; 2018-02-25 09:52)
DX: I25.119 Atherosclerotic heart disease of native coronary artery with unspecified angina pectoris (principal); I50.33 Acute on chronic diastolic (congestive) heart failure; J96.10 Chronic respiratory failure, unspecified whether with hypoxia or hypercapnia; I48.0 Paroxysmal atrial fibrillation; J44.9 Chronic obstructive pulmonary disease, unspecified; Z99.81 Dependence on supplemental oxygen; D64.9 Anemia, unspecified; I34.0 Nonrheumatic mitral (valve) insufficiency; E03.9 Hypothyroidism, unspecified; E78.5 Hyperlipidemia, unspecified; I10 Essential (primary) hypertension; I49.3 Ventricular premature depolarization; I70.209 Unspecified atherosclerosis of native arteries of extremities, unspecified extremity; K21.9 Gastro-esophageal reflux disease without esophagitis; M19.90 Unspecified osteoarthritis, unspecified site; M51.9 Unspecified thoracic, thoracolumbar and lumbosacral intervertebral disc disorder; Z79.899 Other long term (current) drug therapy; Q27.2 Other congenital malformations of renal artery; Z72.0 Tobacco use; Z88.0 Allergy status to penicillin; Z79.01 Long term (current) use of anticoagulants; Z79.02 Long term (current) use of antithrombotics/antiplatelets; Z79.82 Long term (current) use of aspirin; Z83.3 Family history of diabetes mellitus; Z82.49 Family history of ischemic heart disease and other diseases of the circulatory system
CPT/HCPCS: 36415; 36430; 36600; 71045; 71046; 75625; 80048; 80061; 81001; 82330; 82435; 82803; 82947; 82948; 83036; 83605; 83735; 84100; 84132; 84295; 85018; 85025; 85027; 85347; 85610; 85730; 86850; 86900; 86901; 86922; 93005; 93458; 93880; 94002; 94010; 94150; 94640; 94664; 97039; A4606; A7048; C1894; C9113; J0171; J0282; J1644; J1720; J1815; J1940; J2001; J2250; J2260; J2440; J2704; J2720; J2795; J3010; J3475; J3480; J3490; J7030; J7040; J7060; J7608; P9016; P9045; Q9967

== ENCOUNTER 2019-08-10 08:36 | Emergency (ER) | payer MEDICARE ==
[~2019-08-10 08:36] MED LIST changes: -ACETAMINOPHEN 325 MG TAB PO PRN; +ALBU2.5V2 IH; -ALBU8.5H8 IH; -ALPR1TAB2 PO; +ALPR1TAB7 PO; +APIX5TAB PO; -BUDE10.2 IH; -CLOP75TA14 PO; +LEVO88TA7 PO; -NAPR220C15 PO; -RANI-248 PO; +RANI-662 PO; -SODIUM CHLORIDE 0.9% 500ML 500 ML IV SCH; -TIOT18CA3 IH; +TIOTROPIUM PUFF
[2019-08-10] MEDS ORDERED: IPRATROPIUM/ALBUTEROL SULFATE 3 ML SOLUTION IH ONE (08:55)
[2019-08-10] MEDS ORDERED: LEVOFLOXACIN 500 MG/D5W 100 ML 100 ML ONE (08:57)
[2019-08-10] MEDS ORDERED: METHYLPREDNISOLONE SOD SUCC 125MG/2ML VIAL ONE (08:57)
[2019-08-10 09:01] LABS: BASOPHILS % (AUTO) 0.5 % (0.0-5.0); EOSINOPHILS % (AUTO) 3.4 % (0.0-8.0); HEMATOCRIT 35.4 % (36-48); LYMPHOCYTES % (AUTO) 23.9 % (21.0-51.0); MEAN CORPUSCULAR HEMOGLOBIN 31.3 pg (27.0-33.0); MEAN CORPUSCULAR HGB CONC 34.2 g/dL (32.0-36.0); MEAN CORPUSCULAR VOLUME 91.8 fL (79-99); MONOCYTES % (AUTO) 9.5 % (3.0-13.0); NEUTROPHILS % (AUTO) 62.7 % (40.0-77.0); PLATELET COUNT (AUTO) 315 K/uL (130-400); RED BLOOD CELL COUNT(AUTO) 3.86 MIL/uL (4.00-5.50); RED CELL DISTRIBUTION WIDTH 15.7 % (11.0-15.5); WHITE BLOOD COUNT (AUTO) 8.6 K/uL (4.8-10.8)
[2019-08-10 09:16] LABS: POTASSIUM 3.8 mmol/L (3.5-5.1)
[2019-08-10 09:21] LABS: ALBUMIN 3.4 g/dL (3.5-5.0); BILIRUBIN,TOTAL 0.3 mg/dL (0.2-1.0); TOTAL PROTEIN, SERUM 6.8 g/dL (6.0-8.3)
[2019-08-10 09:38] LABS: B-TYPE NATRIURETIC PEPTIDE 29 pg/mL (0-100)
== END 2019-08-10 10:45 | disposition home or self-care (01) ==
LOC: EDH 08:36
DX: J44.1 Chronic obstructive pulmonary disease with (acute) exacerbation (principal); E78.5 Hyperlipidemia, unspecified; I10 Essential (primary) hypertension; I25.10 Atherosclerotic heart disease of native coronary artery without angina pectoris; Z88.0 Allergy status to penicillin
CPT/HCPCS: 36415; 71045; 80053; 82550; 83880; 84484; 85025; 93005; 94640; 96365; 96366; 96375; 99285; J1956; J2930

== ENCOUNTER 2019-10-13 16:14 | Inpatient (IN) | payer MEDICARE ==
[~2019-10-13] VITALS: Ht 165.1 cm; Wt 67.6 kg
[~2019-10-13 16:14] MED LIST changes: -DILT240C3 PO; +DILT240C97 PO
[2019-10-13] MEDS ORDERED: IPRATROPIUM/ALBUTEROL SULFATE 3 ML SOLUTION IH ONE (16:21)
[2019-10-13 16:36] LABS: ABG BASE EXCESS 1.3 mmol/L (-2.0-3.0); ABG HCO3 25.7 mmol/L (21.0-28.0); ABG OXYGEN SATURATION 96.1 % (95.0-99.0); ABG PCO2 40 mmHg (32-45)
[2019-10-13] MEDS ORDERED: ACETAMINOPHEN 325 MG TAB ONE (16:49)
[2019-10-13] MEDS ORDERED: METHYLPREDNISOLONE SOD SUCC 125MG/2ML VIAL ONE (16:49)
[2019-10-13] MEDS ORDERED: LEVOFLOXACIN 500 MG/D5W 100 ML 100 ML ONE (16:49)
[2019-10-13] MEDS ORDERED: SODIUM CHLORIDE 0.9% 1000ML 2,000 ML IV ONE (16:49)
[2019-10-13 17:04] LABS: BASOPHILS % (AUTO) 0.2 % (0.0-5.0); EOSINOPHILS % (AUTO) 0.8 % (0.0-8.0); HEMATOCRIT 38.5 % (36-48); MEAN CORPUSCULAR HEMOGLOBIN 30.2 pg (27.0-33.0); MEAN CORPUSCULAR HGB CONC 33.5 g/dL (32.0-36.0); MEAN CORPUSCULAR VOLUME 90.1 fL (79-99); MONOCYTES % (AUTO) 8.3 % (3.0-13.0); NEUTROPHILS % (AUTO) 80.7 % (40.0-77.0); NUCLEATED RED BLOOD CELLS 0.1 % (0.0-0.19); PLATELET COUNT (AUTO) 246 K/uL (130-400); RED BLOOD CELL COUNT(AUTO) 4.27 MIL/uL (4.00-5.50); RED CELL DISTRIBUTION WIDTH 14.5 % (11.0-15.5); WHITE BLOOD COUNT (AUTO) 16.3 K/uL (4.8-10.8)
[2019-10-13 17:11] LABS: INR 0.89 (0.85-1.15); PARTIAL THROMBOPLASTIN TIME 31.8 SEC (26.3-35.5); PROTHROMBIN TIME 9.4 SEC (9.6-11.6)
[2019-10-13 17:34] LABS: CARBON DIOXIDE 28 mmol/L (21-32); CHLORIDE 101 mmol/L (101-111); GLOMERULAR FILTR. RATE CALC 57 mL/min (>60); GLUCOSE,RANDOM 153 mg/dL (70-105); POTASSIUM 3.8 mmol/L (3.5-5.1); SODIUM SERUM 137 mmol/L (136-145); UREA NITROGEN, BLOOD 10 mg/dL (7-18)
[2019-10-13 17:39] LABS: APPEARANCE,URINE Clear (CLEAR); BILIRUBIN,URINE Negative (NEGATIVE); COLOR,URINE Yellow (YELLOW); GLUCOSE, URINE (UA) Negative (NEGATIVE); KETONES,URINE Negative (NEGATIVE); LEUKOCYTE ESTERASE ,URINE Small (NEGATIVE); NITRATE,URINE Positive (NEGATIVE); OCCULT BLOOD,URINE Trace (NEGATIVE); PROTEIN,URINE Negative (NEGATIVE); UROBILINOGEN,URINE 0.2 mg/dL (0.2-1.0)
[2019-10-13 17:45] LABS: BACTERIA,URINE Few /HPF (None Seen)
[2019-10-13 17:46] LABS: SQUAMOUS EPITHELIAL CELL,UR Few /HPF (0-2)
[2019-10-13 17:49] LABS: ALANINE AMINOTRANSFERASE 13 U/L (12-78); ALBUMIN 3.6 g/dL (3.5-5.0); ASPARTATE AMINOTRANSFERASE 14 U/L (10-37); BILIRUBIN,TOTAL 0.4 mg/dL (0.2-1.0); CREATINE KINASE, TOTAL 50 U/L (21-232); MYOGLOBIN 46 ng/mL (10-92); TOTAL PROTEIN, SERUM 7.5 g/dL (6.0-8.3); TROPONIN I < 0.04 ng/mL (0.00-0.06)
[2019-10-13] MEDS ORDERED: COMPOUND PO MISCELLANEOUS 1 EACH MISC MISC PRN (19:30)
[2019-10-13] MEDS ORDERED: IPRATROPIUM/ALBUTEROL SULFATE 3 ML SOLUTION IH PRN ×2 (19:30→20:45)
[2019-10-13] MEDS: AZITHROMYCIN 500MG+NS 250ML 250 ML IV SCH (20:00)
[2019-10-13] MEDS ORDERED: TRAMADOL HCL 50 MG TABLET ONE (20:05)
[2019-10-13] MEDS: OSELTAMIVIR SUSP 15 MG/ML (6 CAPS/29ML) PO SCH ×2 (21:00)
[2019-10-13] MEDS ORDERED: CEFTRIAXONE SODIUM 1 GM ONE (21:24)
[2019-10-13] MEDS ORDERED: APIXABAN 2.5 MG TABLET PO ONE (22:54)
[2019-10-13] MEDS ORDERED: ALPRAZOLAM 1 MG TAB ONE (22:55)
[2019-10-13] MEDS ORDERED: AZITHROMYCIN 500MG+NS 250ML 250 ML IV ONE (22:55)
[2019-10-13] MEDS: METHYLPREDNISOLONE SOD SUCC 40MG/ML 1ML IVP SCH (23:09)
[2019-10-13 23:26] VITALS: BP 128/86
--- NOTE | 2019-10-13 23:26 | NUR ---
ASSESSMENT: REPORT RECEIVED FROM MARIA CARRASCO FROM ER. PATIENT AA0 X 3, KARLA 2 MM , FOLLOWS COMMANDS, STRONG X 4, LUNGS DIMINISHED, O2 2L NC, PATIENT SOB AT REST, ABDOMEN SOFT BOWEL SOUNDS PRESENT, PEDAL PULSES PALPABLE. PATIENT STATES HER SIGNIFICANT OTHER WILL BRING HOME MEDS IN AM. PATIENT WITH SILVER COLORED RING WITH CLEAR STONE., ADULT BRIEF ON. PLAN OF CARE DISCUSSED, ADMISSION INFORMATION GIVEN INCLUDING BOOKLET "MEDICATION GUIDE , REASONS, SIDE EFFECTS ". BED ALARM ON, PATIENT INSTRUCTED TO CALL FOR ASSISTANCE IF GETTING OUT OF BED. CALL KRAMER IN PATIENT'S HAND.
[2019-10-13 23:27] VITALS: BP 128/86
[2019-10-13 23:32] VITALS: BP 127/71
[2019-10-14] VITALS (17 sets, daily range): BP systolic 111–164; BP diastolic 51–82
[2019-10-14] MEDS: IPRATROPIUM/ALBUTEROL SULFATE 3 ML SOLUTION IH SCH ×5 (00:22→23:17)
[2019-10-14] MEDS: METHYLPREDNISOLONE SOD SUCC 40MG/ML 1ML IVP SCH ×5 (00:43→20:43)
[2019-10-14] MEDS ORDERED: METHYLPREDNISOLONE SOD SUCC 40MG/ML 1ML IVP SCH (05:00)
[2019-10-14 05:25] LABS: MEAN CORPUSCULAR HGB CONC 33.2 g/dL (32.0-36.0); MEAN CORPUSCULAR VOLUME 90.4 fL (79-99); PLATELET COUNT (AUTO) 237 K/uL (130-400); RED BLOOD CELL COUNT(AUTO) 3.65 MIL/uL (4.00-5.50); RED CELL DISTRIBUTION WIDTH 14.6 % (11.0-15.5); WHITE BLOOD COUNT (AUTO) 16.7 K/uL (4.8-10.8)
[2019-10-14 05:51] LABS: ALBUMIN 2.7 g/dL (3.5-5.0); BILIRUBIN,TOTAL 0.3 mg/dL (0.2-1.0); CREATININE 0.9 mg/dL (0.5-1.5); POTASSIUM 4.6 mmol/L (3.5-5.1); TOTAL PROTEIN, SERUM 6.2 g/dL (6.0-8.3)
[2019-10-14] MEDS: BUDESONIDE 0.5 MG/2 ML INH IH SCH ×2 (06:59→17:43)
[2019-10-14] MEDS ORDERED: LEVO75TA10 PO (08:45)
[2019-10-14] MEDS ORDERED: ALPR0.5T8 PO (08:45)
--- NOTE | 2019-10-14 11:15 | NUR ---
Jennifer Coy HEALTH AND SAFETY INSTRUCTOR here to see patient. Made aware of Home Medications that were reviewed and needed to be reconciled. Pending Medications to be reconciled at this time.
[2019-10-14] MEDS: OSELTAMIVIR SUSP 15 MG/ML (6 CAPS/29ML) PO SCH ×4 (11:17→20:42)
--- NOTE | 2019-10-14 11:41 | NUR ---
Report Given to Joss SIFUENTES. Patient being transferred to room 224.
--- NOTE | 2019-10-14 12:00 | NUR ---
TRANSFER FROM 206 RECEIVED PT VIA WHEELCHAIR, A&0X3, CALM COOPERATIVE AND DOES NOT APPEAR TO BE IN ANY DISTRESS NOR ANY NEURO DEFICITS, PT DENIES PAIN, DIZZINESS OR LIGHTHEADEDNESS. PT AMBULATING FROM WHEELCHAIR TO BED, GAIT STEADY AND STRONG WITH STAND BY ASSIST. CALL LIGHT WITHIN REACH, FAMILY AT BEDSIDE.
[2019-10-14] MEDS ORDERED: ALPRAZOLAM 0.5 MG TABLET PO PRN (12:15)
[2019-10-14] MEDS ORDERED: APIXABAN 5 MG TABLET PO ONE (15:54)
[2019-10-14] MEDS: APIXABAN 5 MG TABLET PO SCH (16:07)
[2019-10-14] MEDS: DILTIAZEM HCL 120 MG CAP.SR.24H PO SCH (16:08)
--- NOTE | 2019-10-14 16:08 | NUR ---
DC PLAN VISITED WITH PATIENT. PATIENT LIVES WITH [employer]PER[employer]. PATIENT HAS 02 AT HOME NO OTHER EQUIPMENT. FEELS SAFE TO RETURN HOME. Addendum: 10/14/19 at 1611 by JAQUELINE PARRA RN CM Amended: Links added.
[2019-10-14] MEDS ORDERED: CEFTRIAXONE SODIUM 1 GM IVP SCH ×2 (18:00→21:00)
[2019-10-14] MEDS: AZITHROMYCIN 500MG+NS 250ML 250 ML IV SCH (20:41)
[2019-10-14] MEDS ORDERED: ATORVASTATIN CALCIUM 10 MG TABLET PO SCH (21:00)
[2019-10-15 03:29] VITALS: BP 102/53
[2019-10-15 04:14] LABS: HEMATOCRIT 30.6 % (36-48); MEAN CORPUSCULAR HEMOGLOBIN 30.1 pg (27.0-33.0); MEAN CORPUSCULAR HGB CONC 33.2 g/dL (32.0-36.0); MEAN CORPUSCULAR VOLUME 90.7 fL (79-99); PLATELET COUNT (AUTO) 238 K/uL (130-400); RED BLOOD CELL COUNT(AUTO) 3.37 MIL/uL (4.00-5.50); RED CELL DISTRIBUTION WIDTH 14.3 % (11.0-15.5); WHITE BLOOD COUNT (AUTO) 12.6 K/uL (4.8-10.8)
[2019-10-15 04:25] LABS: LYMPHOCYTES % (MANUAL) 7 % (22-44); MAN.DIFF COMMENT-IMPRESSION MANUAL DIFFERENTIAL; PLATELET MORPHOLOGY COMMENT PLT CLUMPS PRESENT; SEGMENTED NEUTROPHILS % 93 % (40-70)
[2019-10-15] MEDS: IPRATROPIUM/ALBUTEROL SULFATE 3 ML SOLUTION IH SCH ×2 (05:55→11:03)
[2019-10-15] MEDS: BUDESONIDE 0.5 MG/2 ML INH IH SCH (05:55)
[2019-10-15] MEDS ORDERED: LEVOTHYROXINE 75 MCG TABLET PO SCH (06:30)
[2019-10-15] MEDS: METHYLPREDNISOLONE SOD SUCC 40MG/ML 1ML IVP SCH (06:36)
--- NOTE | 2019-10-15 07:20 | NUR ---
ASSESSMENT ENCOUNTERED PT A&OX3, CALM COOPERATIVE AND DOES NOT APPEAR TO BE IN ANY DISTRESS NOR ANY NEURO DEFICITS PRESENT. PT DENIES PAIN, DIZZINESS OR LIGHTHEADEDNESS BUT DOES C/O INTERMITTENT COUGH. PT IS AMBULATORY, GAIT STEADY AND STRONG WITH STAND BY ASSIST. CALL LIGHT WITHIN REACH, FAMILY AT BEDSIDE.
[2019-10-15 07:47] VITALS: BP 132/59
[2019-10-15] MEDS ORDERED: DILTIAZEM HCL 120 MG CAP.SR.24H PO SCH (09:00)
[2019-10-15] MEDS: DILTIAZEM HCL 120 MG CAP.SR.24H PO SCH (09:23)
[2019-10-15] MEDS: APIXABAN 5 MG TABLET PO SCH (09:23)
[2019-10-15] MEDS: OSELTAMIVIR SUSP 15 MG/ML (6 CAPS/29ML) PO SCH ×2 (09:24)
[2019-10-15] MEDS ORDERED: NITR100C4 PO (11:10)
[2019-10-15] MEDS ORDERED: METH4TAB PO (11:12)
[2019-10-15] MEDS ORDERED: METH8TAB PO (11:12)
[2019-10-15] MEDS ORDERED: METH16TA PO (11:12)
[2019-10-15 11:46] VITALS: BP 127/59
--- NOTE | 2019-10-15 15:50 | NUR ---
GIVEN DISMISSAL INSTRUCTIONS AND EDUCATION ON MEDROL PACK. VERBALIZED UNDERSTANDING. REMOVED SALINE LOCK FROM LEFT WRIST, IV SITE WITHOUT REDNESS NOTED. REMOVED TELE PACK. DISMISSAL PAPERWORK GIVEN AND SIGNED BY PATIENT.
--- NOTE | 2019-10-15 15:58 | NUR ---
TAKEN TO PRIVATE CAR ALONG WITH PERSONAL BELONGINGS VIA WHEELCHAIR BY SYDNIE HYDE.
== END 2019-10-15 15:55 | disposition home or self-care (01) | DRG 871 ==
LOC: EDH 16:14 → EDHIP 18:44 → 2BH 22:53 → 2DH 10-14 11:49
PROVIDERS: ADMIT Internal Medicine Nephrology; ATTEND Internal Medicine Nephrology
DX: A41.9 Sepsis, unspecified organism (principal); J18.9 Pneumonia, unspecified organism; J96.21 Acute and chronic respiratory failure with hypoxia; J44.1 Chronic obstructive pulmonary disease with (acute) exacerbation; J44.0 Chronic obstructive pulmonary disease with (acute) lower respiratory infection; N39.0 Urinary tract infection, site not specified; I25.10 Atherosclerotic heart disease of native coronary artery without angina pectoris; E78.5 Hyperlipidemia, unspecified; F17.200 Nicotine dependence, unspecified, uncomplicated; I10 Essential (primary) hypertension; I48.91 Unspecified atrial fibrillation; I73.9 Peripheral vascular disease, unspecified; Z95.1 Presence of aortocoronary bypass graft; Z99.81 Dependence on supplemental oxygen; Z79.01 Long term (current) use of anticoagulants; Z90.710 Acquired absence of both cervix and uterus; Z88.0 Allergy status to penicillin; Z88.8 Allergy status to other drugs, medicaments and biological substances; Z83.3 Family history of diabetes mellitus
CPT/HCPCS: 36415; 36600; 71045; 80048; 80053; 81001; 82550; 82803; 82948; 83605; 83874; 83880; 84145; 84484; 85025; 85027; 85610; 85730; 87040; 87077; 87088; 87186; 87804; 93005; 94640; 94660; 94664; 94667; 99291; G0378; J0456; J0696; J1956; J2920; J2930; J7030

== ENCOUNTER → 2020-01-21 | Outpatient (CLI) | payer MEDICARE ==
[~2020-01-21] MED LIST changes: +ALPR0.5T8 PO; -ALPR1TAB7 PO; +LEVO75TA10 PO; -LEVO88TA7 PO; +METH16TA PO; +METH4TAB PO; +METH8TAB PO; +NITR100C4 PO
== END | disposition home or self-care (01) ==
LOC: SHCH 08:22
PROVIDERS: ATTEND Internal Medicine Cardiovascular Disease
DX: I25.10 Atherosclerotic heart disease of native coronary artery without angina pectoris (principal); I65.23 Occlusion and stenosis of bilateral carotid arteries; R60.9 Edema, unspecified
CPT/HCPCS: 93306; 93356; 93880; 93925

== ENCOUNTER → 2020-02-19 | Outpatient (CLI) | payer MEDICARE ==
[~2020-02-19] MED LIST changes: +IOHEXOL-350 50ML VIAL IV ONE; +IOHEXOL-350 75 ML VIAL IV ONE
== END | disposition home or self-care (01) ==
LOC: RAH 07:52
PROVIDERS: ATTEND Internal Medicine Cardiovascular Disease
DX: K57.90 Diverticulosis of intestine, part unspecified, without perforation or abscess without bleeding (principal); I77.1 Stricture of artery; K44.9 Diaphragmatic hernia without obstruction or gangrene; I70.90 Unspecified atherosclerosis; I73.9 Peripheral vascular disease, unspecified
CPT/HCPCS: 75635; Q9967 ×2

== ENCOUNTER 2020-04-08 14:35 | Inpatient (IN) | payer MEDICARE ==
[~2020-04-08] VITALS: Ht 157.5 cm; Wt 59.2 kg
[~2020-04-08 14:35] MED LIST changes: -IOHEXOL-350 50ML VIAL IV ONE; -IOHEXOL-350 75 ML VIAL IV ONE
[2020-04-08] MEDS ORDERED: ASPIRIN 325 MG TABLET ONE (14:51)
[2020-04-08 15:03] LABS: BASOPHILS % (AUTO) 0.7 % (0.0-5.0); EOSINOPHILS % (AUTO) 6.5 % (0.0-8.0); HEMATOCRIT 38.5 % (36-48); LYMPHOCYTES % (AUTO) 31.4 % (21.0-51.0); MEAN CORPUSCULAR HEMOGLOBIN 29.2 pg (27.0-33.0); MEAN CORPUSCULAR HGB CONC 32.7 g/dL (32.0-36.0); MEAN CORPUSCULAR VOLUME 89.3 fL (79-99); MONOCYTES % (AUTO) 8.8 % (3.0-13.0); NEUTROPHILS % (AUTO) 52.3 % (40.0-77.0); PLATELET COUNT (AUTO) 320 K/uL (130-400); RED BLOOD CELL COUNT(AUTO) 4.31 MIL/uL (4.00-5.50); RED CELL DISTRIBUTION WIDTH 14.3 % (11.0-15.5); WHITE BLOOD COUNT (AUTO) 11.8 K/uL (4.8-10.8)
[2020-04-08 15:16] LABS: INR 0.89 (0.85-1.15); PARTIAL THROMBOPLASTIN TIME 31.3 SEC (26.3-35.5); PROTHROMBIN TIME 9.7 SEC (9.6-11.6)
[2020-04-08 15:18] LABS: POTASSIUM 4.4 mmol/L (3.5-5.1)
[2020-04-08 15:27] LABS: BILIRUBIN,TOTAL 0.2 mg/dL (0.2-1.0); TOTAL PROTEIN, SERUM 7.7 g/dL (6.0-8.3)
[2020-04-08] MEDS ORDERED: DEXAMETHASONE SOD PHOSPHATE 10MG/ML 1ML VIAL ONE (15:32)
[2020-04-08] MEDS ORDERED: IPRATROPIUM/ALBUTEROL SULFATE 3 ML SOLUTION IH ONE (15:33)
[2020-04-08] MEDS ORDERED: ACETAMINOPHEN 325 MG TAB ONE (17:01)
[2020-04-08] MEDS: HEPARIN SODIUM 5000UNIT/ML 1ML VIAL SQ SCH (19:00)
[2020-04-08] MEDS: METHYLPREDNISOLONE SOD SUCC 40MG/ML 1ML IVP SCH (19:00)
[2020-04-08] MEDS: NITROGLYCERIN 1GM/1 INCH PACKET TD SCH (19:00)
[2020-04-08] MEDS ORDERED: ACETAMINOPHEN 325 MG TAB PO PRN ×2 (19:00)
[2020-04-08] MEDS ORDERED: ONDANSETRON HCL 4 MG/2 ML VIAL IV PRN (19:00)
[2020-04-08] MEDS ORDERED: MIDODRINE HCL 5 MG TABLET PO SCH (19:15)
[2020-04-08] MEDS ORDERED: METHYLPREDNISOLONE SOD SUCC 40MG/ML 1ML ONE (20:20)
[2020-04-08] MEDS ORDERED: MIDODRINE HCL 5 MG TABLET ONE (20:21)
[2020-04-08] MEDS ORDERED: HEPARIN SODIUM 5000UNIT/ML 1ML VIAL ONE (20:21)
[2020-04-08] MEDS: FAMOTIDINE/PF 20 MG/2 ML VIAL IV SCH (21:00)
[2020-04-08] MEDS ORDERED: FAMOTIDINE/PF 20 MG/2 ML VIAL IV SCH (21:00)
[2020-04-08 22:20] VITALS: BP 150/67
[2020-04-08] MEDS ORDERED: CEFTRIAXONE SODIUM 1 GM IVP SCH (22:30)
[2020-04-09] MEDS: AZITHROMYCIN 500MG+NS 250ML 250 ML IV SCH ×2 (02:21→22:10)
[2020-04-09] MEDS: ALPRAZOLAM 0.5 MG TABLET PO PRN ×2 (02:21→22:10)
[2020-04-09] MEDS: SODIUM CHLORIDE 0.9% 1000ML 1,000 ML IV SCH ×2 (02:22→08:20)
[2020-04-09] MEDS: NITROGLYCERIN 1GM/1 INCH PACKET TD SCH ×4 (02:22→22:15)
[2020-04-09] MEDS: METHYLPREDNISOLONE SOD SUCC 40MG/ML 1ML IVP SCH ×3 (02:22→20:19)
[2020-04-09 04:00] VITALS: BP 121/60
[2020-04-09] MEDS ORDERED: ALBUTEROL SULFATE 0.083% 2.5 MG/3 ML INH IH PRN (06:30)
[2020-04-09] MEDS: HEPARIN SODIUM 5000UNIT/ML 1ML VIAL SQ SCH (06:37)
[2020-04-09 07:04] LABS: BASOPHILS % (AUTO) 0.3 % (0.0-5.0); HEMATOCRIT 39.4 % (36-48); LYMPHOCYTES % (AUTO) 23.7 % (21.0-51.0); MEAN CORPUSCULAR HEMOGLOBIN 29.5 pg (27.0-33.0); MEAN CORPUSCULAR VOLUME 89.5 fL (79-99); MONOCYTES % (AUTO) 0.3 % (3.0-13.0); NEUTROPHILS % (AUTO) 75.1 % (40.0-77.0); PLATELET COUNT (AUTO) 323 K/uL (130-400); RED CELL DISTRIBUTION WIDTH 13.9 % (11.0-15.5); WHITE BLOOD COUNT (AUTO) 6.9 K/uL (4.8-10.8)
[2020-04-09 07:13] LABS: HEMOGLOBIN A1C 5.7 % (4.0-6.0)
[2020-04-09 07:32] LABS: ALANINE AMINOTRANSFERASE 15 U/L (12-78); ALBUMIN 3.5 g/dL (3.5-5.0); ASPARTATE AMINOTRANSFERASE 20 U/L (10-37); BILIRUBIN,TOTAL 0.2 mg/dL (0.2-1.0); CARBON DIOXIDE 29 mmol/L (21-32); CHLORIDE 101 mmol/L (101-111); CHOLESTEROL 200 mg/dL (<200); CREATINE KINASE, TOTAL 86 U/L (21-232); CREATININE 0.9 mg/dL (0.5-1.5); GLOMERULAR FILTR. RATE CALC 64 mL/min (>60); GLUCOSE,RANDOM 162 mg/dL (70-105); HDL CHOLESTEROL 118 mg/dL (35-85); LDL DIRECT 62 mg/dL (0-99); MYOGLOBIN 76 ng/mL (10-92); POTASSIUM 4.4 mmol/L (3.5-5.1); SODIUM SERUM 136 mmol/L (136-145); THYROID STIMULATING HORMONE 0.47 uIU/mL (0.36-3.74); TOTAL PROTEIN, SERUM 7.3 g/dL (6.0-8.3); TRIGLYCERIDES 104 mg/dL (30-200); TROPONIN I < 0.04 ng/mL (0.00-0.06); UREA NITROGEN, BLOOD 12 mg/dL (7-18)
[2020-04-09 07:54] VITALS: BP 154/71
[2020-04-09] MEDS: MIDODRINE HCL 5 MG TABLET PO SCH ×2 (08:35→20:29)
[2020-04-09] MEDS: ASPIRIN 81 MG EC TAB PO SCH (08:35)
[2020-04-09] MEDS: FAMOTIDINE/PF 20 MG/2 ML VIAL IV SCH ×2 (08:35→20:19)
[2020-04-09] MEDS ORDERED: ALBUTEROL SULFATE 0.083% 2.5 MG/3 ML INH IH SCH (10:00)
[2020-04-09] MEDS ORDERED: BUDE0.5A3 IH (10:35)
--- NOTE | 2020-04-09 11:16 | NUR ---
INITIAL SW spoke with patient. Patient lives with life partner, Jurgen Talavera, [phone]. She has no home services at this time. DME: shower chair, BPM, nebulizer, glucometer (no insulin), O2 concentrator/portable. O2 is thru [facility]. Patient states she is able to complete ADL's independently and drives. PCP is Dr. Lisa Pace. pharmacy is [facility] located on [address]. Patient is requesting a walker. CORI, Megan Peres, made aware. DCP is home. Addendum: 04/09/20 at 1120 by TIM SOTO SS Amended: Links added.
[2020-04-09 12:00] VITALS: BP 143/65
[2020-04-09] MEDS: BUDESONIDE 0.5 MG/2 ML INH IH SCH (14:30)
[2020-04-09 16:00] VITALS: BP 146/80
[2020-04-09] MEDS ORDERED: IOHEXOL-350 75 ML VIAL IV ONE (16:53)
[2020-04-09] MEDS: APIXABAN 5 MG TABLET PO SCH (17:31)
[2020-04-09] MEDS ORDERED: BUDESONIDE 0.5 MG/2 ML INH IH SCH (18:00)
[2020-04-09] MEDS: ALBUTEROL SULFATE 0.083% 2.5 MG/3 ML INH IH SCH ×2 (18:16→21:00)
[2020-04-09 20:06] VITALS: BP 131/62
[2020-04-10] MEDS ORDERED: LEVOTHYROXINE 75 MCG TABLET ONE (02:48)
[2020-04-10] MEDS: LEVOTHYROXINE 75 MCG TABLET PO SCH (03:01)
[2020-04-10] MEDS: METHYLPREDNISOLONE SOD SUCC 40MG/ML 1ML IVP SCH ×3 (03:01→21:06)
[2020-04-10 03:39] VITALS: BP 158/82
[2020-04-10 04:38] LABS: BASOPHILS % (AUTO) 0.1 % (0.0-5.0); HEMATOCRIT 34.7 % (36-48); LYMPHOCYTES % (AUTO) 7.7 % (21.0-51.0); MEAN CORPUSCULAR HEMOGLOBIN 29.6 pg (27.0-33.0); MEAN CORPUSCULAR HGB CONC 32.9 g/dL (32.0-36.0); MEAN CORPUSCULAR VOLUME 90.1 fL (79-99); MONOCYTES % (AUTO) 2.2 % (3.0-13.0); NEUTROPHILS % (AUTO) 89.5 % (40.0-77.0); PLATELET COUNT (AUTO) 291 K/uL (130-400); RED BLOOD CELL COUNT(AUTO) 3.85 MIL/uL (4.00-5.50); RED CELL DISTRIBUTION WIDTH 14.2 % (11.0-15.5); WHITE BLOOD COUNT (AUTO) 10.1 K/uL (4.8-10.8)
[2020-04-10 04:59] LABS: ALBUMIN 3.3 g/dL (3.5-5.0); BILIRUBIN,TOTAL 0.2 mg/dL (0.2-1.0); CREATININE 0.8 mg/dL (0.5-1.5); POTASSIUM 4.2 mmol/L (3.5-5.1); TOTAL PROTEIN, SERUM 6.4 g/dL (6.0-8.3)
[2020-04-10] MEDS: BUDESONIDE 0.5 MG/2 ML INH IH SCH (06:03)
[2020-04-10] MEDS: ALBUTEROL SULFATE 0.083% 2.5 MG/3 ML INH IH SCH ×3 (06:04→22:17)
[2020-04-10] MEDS: NITROGLYCERIN 1GM/1 INCH PACKET TD SCH (06:30)
[2020-04-10 08:00] VITALS: BP 151/76
[2020-04-10] MEDS: SODIUM CHLORIDE 0.9% 1000ML 1,000 ML IV SCH ×2 (08:59→21:06)
[2020-04-10] MEDS: APIXABAN 5 MG TABLET PO SCH ×2 (08:59→17:32)
[2020-04-10] MEDS: ASPIRIN 81 MG EC TAB PO SCH (08:59)
[2020-04-10] MEDS: DILTIAZEM HCL 120 MG CAP.SR.24H PO SCH (09:00)
[2020-04-10] MEDS: FAMOTIDINE/PF 20 MG/2 ML VIAL IV SCH ×2 (09:00→21:06)
[2020-04-10 11:42] VITALS: BP 156/74
[2020-04-10] MEDS ORDERED: PHARMACY COMMUNICATION MISC SCH (14:00)
[2020-04-10 15:57] VITALS: BP 153/74
[2020-04-10 20:03] VITALS: BP 141/69
[2020-04-10] MEDS: ALPRAZOLAM 0.5 MG TABLET PO PRN (21:06)
[2020-04-10] MEDS: ATORVASTATIN CALCIUM 10 MG TABLET PO SCH (21:06)
--- NOTE | 2020-04-10 21:06 | NUR ---
ANXIETY Pt is anxious about her meds.She insists on taking her meds at the same time she takes them at home.She asked for her Xanax to help her sleep.
[2020-04-10] MEDS: AZITHROMYCIN 500MG+NS 250ML 250 ML IV SCH (22:47)
[2020-04-10 23:32] VITALS: BP 122/54
[2020-04-11] MEDS: SODIUM CHLORIDE 0.9% 1000ML 1,000 ML IV SCH ×2 (00:03→21:18)
--- NOTE | 2020-04-11 03:12 | NUR ---
SLEPT Pt slept well,denies pain or discomfort.
[2020-04-11] MEDS: METHYLPREDNISOLONE SOD SUCC 40MG/ML 1ML IVP SCH ×3 (03:31→21:18)
[2020-04-11] MEDS: LEVOTHYROXINE 75 MCG TABLET PO SCH (03:37)
[2020-04-11 04:01] VITALS: BP 130/71
[2020-04-11 04:53] LABS: BASOPHILS % (AUTO) 0.1 % (0.0-5.0); HEMATOCRIT 34.2 % (36-48); LYMPHOCYTES % (AUTO) 5.7 % (21.0-51.0); MEAN CORPUSCULAR HEMOGLOBIN 29.8 pg (27.0-33.0); MEAN CORPUSCULAR VOLUME 90.2 fL (79-99); MONOCYTES % (AUTO) 2.1 % (3.0-13.0); NEUTROPHILS % (AUTO) 91.1 % (40.0-77.0); PLATELET COUNT (AUTO) 279 K/uL (130-400); RED BLOOD CELL COUNT(AUTO) 3.79 MIL/uL (4.00-5.50); RED CELL DISTRIBUTION WIDTH 14.4 % (11.0-15.5); WHITE BLOOD COUNT (AUTO) 10.5 K/uL (4.8-10.8)
[2020-04-11 05:23] LABS: ALBUMIN 3.3 g/dL (3.5-5.0); BILIRUBIN,TOTAL 0.2 mg/dL (0.2-1.0); CREATININE 0.8 mg/dL (0.5-1.5); POTASSIUM 3.8 mmol/L (3.5-5.1); TOTAL PROTEIN, SERUM 6.3 g/dL (6.0-8.3)
[2020-04-11] MEDS: BUDESONIDE 0.5 MG/2 ML INH IH SCH (06:45)
[2020-04-11] MEDS: ALBUTEROL SULFATE 0.083% 2.5 MG/3 ML INH IH SCH ×3 (06:46→22:09)
[2020-04-11 07:30] VITALS: BP 136/73
[2020-04-11] MEDS: APIXABAN 5 MG TABLET PO SCH ×2 (08:00→21:18)
--- NOTE | 2020-04-11 08:23 | NUR ---
surgical consult called in to DR. Tapia, talked to rFancesca.
[2020-04-11] MEDS: ASPIRIN 81 MG EC TAB PO SCH (09:00)
[2020-04-11] MEDS: DILTIAZEM HCL 120 MG CAP.SR.24H PO SCH (09:00)
--- NOTE | 2020-04-11 10:00 | NUR ---
DR. HYLTON IN TO SEE PATIENT. DISCUSSED HIDA SCAN AND POSSIBILITY OF NOT HAVING SURGERY AT THIS TIME DEPENDING ON HIDA SCAN RESULTS.
[2020-04-11] MEDS: FAMOTIDINE/PF 20 MG/2 ML VIAL IV SCH ×2 (10:26→21:18)
[2020-04-11 11:00] VITALS: BP 140/64
--- NOTE | 2020-04-11 11:29 | NUR ---
CM NOTE/DME WALKER FOLLOWING UP ON PATIENT REQUEST FOR WALKER. PER NURSE, MISTY SIFUENTES, ROUNDING IN AM AND DID NOT SIGN RX FOR WALKER. [facility] OFFICE CALLED, SPOKE TO IGNACIO AND INFORMED OF PATIENT REQUEST FOR WALKER AND POSSIBLE DC TODAY IF HIDA SCAN NEGATIVE PER SEEING THERE IS NO ABDOMINAL PAIN AT THE MOMENT. IGNACIO VERBALIZED UNDERSTANDING AND WILL RELAY MESSAGE TO MD AND CALL ME BACK WITH RESPONSE.
--- NOTE | 2020-04-11 13:43 | NUR ---
CM NOTE/WALKER REQUEST IGNACIO FROM DR. ULLOA CALLED ME BACK RELAYING MESSAGE FROM MD. PER MD, WILL DISCUSS WALKER WITH PATIENT ONCE SHE IS SEEN AT FOLLOW UP VISIT AFTER HOSPITAL DISCHARGE. CONVERSATION RELAYED TO PRIMARY NURSE MISTY SIFUENTES.
[2020-04-11 16:00] VITALS: BP 155/89
--- NOTE | 2020-04-11 16:20 | NUR ---
TO RAD. DEPT NOW FOR HIDA SCAN.
--- NOTE | 2020-04-11 18:18 | NUR ---
BACK FROM RAD. DEPT. HAS TO REMAIN NPO FOR ANOTHER HR. TO HR AND A HALF. HAS BEEN UNHAPPY ALL DAY,BECAUSE SHE HAS BEEN NPO
[2020-04-11 19:00] VITALS: BP 174/93
[2020-04-11] MEDS: ATORVASTATIN CALCIUM 10 MG TABLET PO SCH (21:18)
[2020-04-11] MEDS: AZITHROMYCIN 500MG+NS 250ML 250 ML IV SCH (21:18)
[2020-04-11] MEDS: ALPRAZOLAM 0.5 MG TABLET PO PRN (21:19)
[2020-04-12] VITALS: BP 120/59
[2020-04-12] MEDS: SODIUM CHLORIDE 0.9% 1000ML 1,000 ML IV SCH (03:00)
[2020-04-12] MEDS: LEVOTHYROXINE 75 MCG TABLET PO SCH (03:52)
[2020-04-12 04:00] VITALS: BP 135/67
--- NOTE | 2020-04-12 04:15 | NUR ---
SLEPT Pt slept overnight,voiced no concerns.
[2020-04-12 05:15] LABS: BASOPHILS % (AUTO) 0.1 % (0.0-5.0); MEAN CORPUSCULAR HEMOGLOBIN 29.7 pg (27.0-33.0); MEAN CORPUSCULAR HGB CONC 33.2 g/dL (32.0-36.0); MEAN CORPUSCULAR VOLUME 89.2 fL (79-99); MONOCYTES % (AUTO) 3.6 % (3.0-13.0); PLATELET COUNT (AUTO) 284 K/uL (130-400); RED BLOOD CELL COUNT(AUTO) 3.81 MIL/uL (4.00-5.50); RED CELL DISTRIBUTION WIDTH 14.2 % (11.0-15.5); WHITE BLOOD COUNT (AUTO) 8.4 K/uL (4.8-10.8)
[2020-04-12 05:29] LABS: ALBUMIN 3.2 g/dL (3.5-5.0); BILIRUBIN,TOTAL 0.3 mg/dL (0.2-1.0); CREATININE 0.8 mg/dL (0.5-1.5); POTASSIUM 3.4 mmol/L (3.5-5.1)
[2020-04-12] MEDS: BUDESONIDE 0.5 MG/2 ML INH IH SCH (06:40)
[2020-04-12] MEDS: ALBUTEROL SULFATE 0.083% 2.5 MG/3 ML INH IH SCH (06:40)
[2020-04-12] MEDS ORDERED: POTASSIUM CHLORIDE 10MEQ/100ML 100 ML IV PRN (07:30)
[2020-04-12] MEDS ORDERED: LIDOCAINE HCL-MPF 1% 2ML VIAL IV PRN (07:30)
[2020-04-12] MEDS ORDERED: POTASSIUM CHLORIDE 20 MEQ ERTAB PO PRN (07:30)
[2020-04-12] MEDS ORDERED: POTASSIUM CHLORIDE 10% ELIXIR 20 MEQ/15 ML UDCUP PO PRN (07:30)
[2020-04-12] MEDS: ASPIRIN 81 MG EC TAB PO SCH (08:26)
[2020-04-12] MEDS: METHYLPREDNISOLONE SOD SUCC 40MG/ML 1ML IVP SCH (08:27)
[2020-04-12] MEDS: APIXABAN 5 MG TABLET PO SCH (08:27)
[2020-04-12] MEDS: FAMOTIDINE/PF 20 MG/2 ML VIAL IV SCH (08:27)
[2020-04-12] MEDS: DILTIAZEM HCL 120 MG CAP.SR.24H PO SCH (08:27)
[2020-04-12 08:38] VITALS: BP 152/77
--- NOTE | 2020-04-12 11:30 | NUR ---
DISCHARGE DISCHARGE INSTRUCTIONS GIVEN TO PATIENT, VERBALIZED UNDERSTANDING. PATIENT GIVEN PRESCRIPTION FOR WALKER. DR ULLOA SAID SHE WOULD CALL A PRESCRIPTION FOR ZITHROMAX AND PREDNISONE TO PATIENTS PHARMACY. IV DISCONTINUED. TELEPAK REMOVED. PATIENT DISCHARGED WITH HER HOME O2 3LPM VIA NC. NO SIGNS OF DISTRESS NOTED. APPOINTMENT MADE FOR PATIENT TO FOLLOW UP WITH DR MATHIAS FOR G[facility]ONES IN 2 WEEKS.
[2020-07-28] MEDS ORDERED: ACET-66 PO (13:30)
[2020-07-28] MEDS ORDERED: LEVO75TA10 PO (13:30)
== END 2020-04-12 11:45 | disposition home or self-care (01) | DRG 193 ==
LOC: EDH 14:35 → EDHIP 18:52 → 4BH 22:23
PROVIDERS: ADMIT Internal Medicine Nephrology; ATTEND Internal Medicine Nephrology
DX: J18.9 Pneumonia, unspecified organism (principal); J96.21 Acute and chronic respiratory failure with hypoxia; J44.1 Chronic obstructive pulmonary disease with (acute) exacerbation; I25.110 Atherosclerotic heart disease of native coronary artery with unstable angina pectoris; J44.0 Chronic obstructive pulmonary disease with (acute) lower respiratory infection; D68.69 Other thrombophilia; N39.0 Urinary tract infection, site not specified; R07.89 Other chest pain; J20.9 Acute bronchitis, unspecified; E03.9 Hypothyroidism, unspecified; E78.5 Hyperlipidemia, unspecified; F41.9 Anxiety disorder, unspecified; I10 Essential (primary) hypertension; I25.2 Old myocardial infarction; I48.0 Paroxysmal atrial fibrillation; K80.20 Calculus of gallbladder without cholecystitis without obstruction; Z79.01 Long term (current) use of anticoagulants; Z82.0 Family history of epilepsy and other diseases of the nervous system; Z82.3 Family history of stroke; Z82.49 Family history of ischemic heart disease and other diseases of the circulatory system; Z82.5 Family history of asthma and other chronic lower respiratory diseases; Z83.3 Family history of diabetes mellitus; Z88.0 Allergy status to penicillin; Z90.710 Acquired absence of both cervix and uterus; Z95.1 Presence of aortocoronary bypass graft; Z99.81 Dependence on supplemental oxygen; I95.9 Hypotension, unspecified; E11.51 Type 2 diabetes mellitus with diabetic peripheral angiopathy without gangrene; Z88.1 Allergy status to other antibiotic agents
CPT/HCPCS: 36415; 70450; 71045; 71275; 74176; 76705; 78226; 80053; 80061; 82150; 82550; 83036; 83690; 83874; 83880; 84443; 84484; 85025; 85610; 85730; 87040; 93005; 94640; 94664; A9537; G0378; J0456; J1100; J1644; J2920; J3490; J7030; Q9967

== ENCOUNTER 2020-07-26 02:16 | Emergency (ER) | payer MEDICARE ==
[~2020-07-26 02:16] MED LIST changes: +BUDE0.5A3 IH
[2020-07-26 02:41] LABS: BASOPHILS % (AUTO) 0.4 % (0.0-5.0); EOSINOPHILS % (AUTO) 3.8 % (0.0-8.0); HEMATOCRIT 35.8 % (36-48); LYMPHOCYTES % (AUTO) 26.6 % (21.0-51.0); MEAN CORPUSCULAR HEMOGLOBIN 29.8 pg (27.0-33.0); MEAN CORPUSCULAR HGB CONC 34.1 g/dL (32.0-36.0); MEAN CORPUSCULAR VOLUME 87.3 fL (79-99); PLATELET COUNT (AUTO) 275 K/uL (130-400); RED CELL DISTRIBUTION WIDTH 13.2 % (11.0-15.5); WHITE BLOOD COUNT (AUTO) 10.8 K/uL (4.8-10.8)
[2020-07-26 02:58] LABS: INR 0.88 (0.85-1.15); PARTIAL THROMBOPLASTIN TIME 29.4 SEC (26.3-35.5); PROTHROMBIN TIME 9.5 SEC (9.6-11.6)
[2020-07-26 02:59] LABS: CREATININE 0.5 mg/dL (0.5-1.5); POTASSIUM 4.5 mmol/L (3.5-5.1)
[2020-07-26 03:04] LABS: ALBUMIN 3.6 g/dL (3.5-5.0); BILIRUBIN,TOTAL 0.8 mg/dL (0.2-1.0); TOTAL PROTEIN, SERUM 6.9 g/dL (6.0-8.3)
[2020-07-26] MEDS ORDERED: METOCLOPRAMIDE 10 MG/2 ML VIAL ONE (03:07)
[2020-07-26] MEDS ORDERED: DiphenhydrAMINE HCL 50 MG/ML VIAL ONE (03:08)
[2020-07-26] MEDS ORDERED: ONDANSETRON HCL 4 MG/2 ML VIAL ONE (03:08)
[2020-07-26] MEDS ORDERED: PANTOPRAZOLE 40 MG/VIAL ONE (03:08)
[2020-07-26] MEDS ORDERED: FAMOTIDINE/PF 20 MG/2 ML VIAL IV ONE (03:09)
[2020-07-26] MEDS ORDERED: LORAZEPAM 2 MG/ML 1 ML VIAL ONE (03:34)
[2020-07-26] MEDS ORDERED: IOHEXOL-350 75 ML VIAL IV ONE (03:55)
[2020-07-26 05:02] LABS: APPEARANCE,URINE CLEAR (CLEAR); BILIRUBIN,URINE NEGATIVE (NEGATIVE); COLOR,URINE YELLOW (YELLOW); GLUCOSE, URINE (UA) NEGATIVE (NEGATIVE); KETONES,URINE NEGATIVE (NEGATIVE); LEUKOCYTE ESTERASE ,URINE SMALL (NEGATIVE); NITRATE,URINE NEGATIVE (NEGATIVE); OCCULT BLOOD,URINE NEGATIVE (NEGATIVE); PROTEIN,URINE NEGATIVE (NEGATIVE); UROBILINOGEN,URINE 0.2 mg/dL (0.2-1.0)
[2020-07-26 05:09] LABS: BACTERIA,URINE Few /HPF (None Seen); MUCUS,URINE Rare LPF (None Seen); RBC,URINE 0-1 /HPF (0-1); SQUAMOUS EPITHELIAL CELL,UR 0-2 /HPF (0-2)
[2020-07-26] MEDS ORDERED: SODIUM CHLORIDE 0.9% 500ML 500 ML IV ONE (05:11)
[2020-07-28] MEDS ORDERED: LEVO75TA10 PO (13:30)
[2020-07-28] MEDS ORDERED: ACET-66 PO (13:30)
== END 2020-07-26 07:08 | disposition home or self-care (01) ==
LOC: EDH 02:16
DX: K29.70 Gastritis, unspecified, without bleeding (principal); I10 Essential (primary) hypertension; E78.5 Hyperlipidemia, unspecified; J44.9 Chronic obstructive pulmonary disease, unspecified; I25.10 Atherosclerotic heart disease of native coronary artery without angina pectoris; Z87.891 Personal history of nicotine dependence
CPT/HCPCS: 36415; 71045; 74177; 80053; 81001; 82550; 83605; 83690; 84484; 85025; 85610; 85730; 93005; 96374; 96375; 99285; C9113; J1200; J2060; J2405; J2765; J3490; J7040; Q9967

== ENCOUNTER 2020-07-29 06:38 | Day surgery (SDC) | payer MEDICARE ==
[~2020-07-29] VITALS: Ht 162.6 cm; Wt 44.9 kg
[2020-07-29] VITALS (10 sets, daily range): BP systolic 99–183; BP diastolic 50–86
[~2020-07-29 06:38] MED LIST changes: +ACET-66 PO; -METH16TA PO; -METH4TAB PO; -METH8TAB PO; -NITR100C4 PO; -RANI-662 PO; -TIOTROPIUM PUFF
[2020-07-29] MEDS ORDERED: SODIUM CHLORIDE 0.9% 1000ML 1,000 ML IV ONE (06:57)
[2020-07-29] MEDS ORDERED: ALBUTEROL SULFATE 0.083% 2.5 MG/3 ML INH IH ONE (07:23)
[2020-07-29] MEDS ORDERED: BUDESONIDE 0.5 MG/2 ML INH IH ONE (07:23)
[2020-07-29] MEDS ORDERED: PROPOFOL 10 MG/ML 20ML VIAL IV ONE (07:44)
[2020-07-29] MEDS ORDERED: LIDOCAINE HCL 1% 20 ML VIAL ONE (07:45)
[2020-07-29] MEDS ORDERED: MIDAZOLAM HCL 1 MG/ML 2ML VIAL ONE (07:45)
== END 2020-07-29 09:23 | disposition home or self-care (01) ==
LOC: ENDO 06:38 → DAH 06:38 → ENDO 09:23
PROVIDERS: ATTEND Internal Medicine Gastroenterology
DX: R19.5 Other fecal abnormalities (principal); D12.0 Benign neoplasm of cecum; K29.50 Unspecified chronic gastritis without bleeding; K57.30 Diverticulosis of large intestine without perforation or abscess without bleeding; K44.9 Diaphragmatic hernia without obstruction or gangrene; K31.89 Other diseases of stomach and duodenum; K64.1 Second degree hemorrhoids; J44.9 Chronic obstructive pulmonary disease, unspecified; I10 Essential (primary) hypertension; I25.10 Atherosclerotic heart disease of native coronary artery without angina pectoris; I48.91 Unspecified atrial fibrillation; F41.9 Anxiety disorder, unspecified; E78.5 Hyperlipidemia, unspecified; Z90.710 Acquired absence of both cervix and uterus; Z98.890 Other specified postprocedural states; Z79.01 Long term (current) use of anticoagulants; Z79.899 Other long term (current) drug therapy
CPT/HCPCS: 43239; 45385; 88305; 88342; 94640 ×2; A4620; A4657; C9803; J2250; J2704; J7030; U0003

== ENCOUNTER → 2021-03-02 | Outpatient (CLI) | payer MEDICARE | END | disposition home or self-care (01) | LOC: SHCH 09:39 | PROVIDERS: ATTEND Internal Medicine Cardiovascular Disease | DX: R01.1 Cardiac murmur, unspecified (principal); R09.89 Other specified symptoms and signs involving the circulatory and respiratory systems | CPT/HCPCS: 93306; 93356; 93880 ==

== ENCOUNTER 2021-05-01 06:43 | Emergency (ER) | payer MEDICARE ==
[~2021-05-01] VITALS: Ht 165.1 cm; Wt 54.4 kg
[2021-05-01 06:47] VITALS: BP 136/79
[2021-05-01] MEDS ORDERED: 0.9%NACL 1000ML 1,000 ML IV SCH (07:00)
[2021-05-01] MEDS ORDERED: ACETAMINOPHEN 325 MG TAB PO SCH (07:00)
[2021-05-01] MEDS ORDERED: LORAZEPAM 2 MG/ML 1 ML VIAL IVP SCH (07:30)
[2021-05-01] MEDS ORDERED: HYDROMORPHONE 0.5 MG SYG (0.5MG/0.5ML) IVP SCH (07:30)
[2021-05-01] MEDS ORDERED: DEXAMETHASONE 4 MG TAB PO SCH (07:30)
[2021-05-01 08:15] LABS: BASOPHILS % (AUTO) 0.4 % (0.0-5.0); EOSINOPHILS % (AUTO) 7.5 % (0.0-8.0); HEMATOCRIT 37.6 % (36-48); LYMPHOCYTES % (AUTO) 21.6 % (21.0-51.0); MEAN CORPUSCULAR HEMOGLOBIN 29.6 pg (27.0-33.0); MEAN CORPUSCULAR VOLUME 89.7 fL (79-99); MONOCYTES % (AUTO) 10.5 % (3.0-13.0); NEUTROPHILS % (AUTO) 59.7 % (40.0-77.0); PLATELET COUNT (AUTO) 274 K/uL (130-400); RED BLOOD CELL COUNT(AUTO) 4.19 MIL/uL (4.00-5.50); WHITE BLOOD COUNT (AUTO) 11.2 K/uL (4.8-10.8)
[2021-05-01 08:30] LABS: CREATININE 0.9 mg/dL (0.5-1.5); POTASSIUM 4.4 mmol/L (3.5-5.1)
[2021-05-01 08:35] LABS: ALBUMIN 3.6 g/dL (3.5-5.0); BILIRUBIN,TOTAL 0.4 mg/dL (0.2-1.0); TOTAL PROTEIN, SERUM 7.3 g/dL (6.0-8.3)
[2021-05-01] MEDS ORDERED: METH-662 PO (08:52)
== END 2021-05-01 09:54 | disposition home or self-care (01) ==
LOC: EDH 06:50
DX: M54.41 Lumbago with sciatica, right side (principal); M79.10 Myalgia, unspecified site; E86.0 Dehydration; J44.9 Chronic obstructive pulmonary disease, unspecified; Z88.0 Allergy status to penicillin; Z88.1 Allergy status to other antibiotic agents; Z79.899 Other long term (current) drug therapy; Z79.01 Long term (current) use of anticoagulants
CPT/HCPCS: 36415; 72100; 80053; 83690; 84484; 85025; 96361; 96374; 96375; 99284; J1170; J2060; J7030; J8540